=== PATIENT | male | born 1980 | race African-American/Black ===

== ENCOUNTER 2017-03-18 12:40 | Inpatient (IN) | payer MEDICARE ==
--- NOTE | 2017-03-18 13:35 | HP ---
CIWA Score - CIWA Score Nausea/Vomitin-Mild Nausea/No Vomiting Muscle Tremors: 3 Anxiety: 4-Mod. Anxious/Guarded Agitation: 0-Normal Activity Paroxysmal Sweats: No Perspiration Orientation: 1-Uncertain about Date Tacttile Disturbances: 1-Very Mild Itch/Numbness Auditory Disturbances: 1-Very Mild Visual Disturbances: 2-Mild Sensitivity Headache: 1-Very Mild CIWA-Ar Total Score: 14 Admission ROS BHS - HPI Chief Complaint: I'm here to stop drinking Allergies/Adverse Reactions: Allergies Allergy/AdvReac Type Severity Reaction Status Date / Time No Known Allergies Allergy Verified 12/24/15 23:29 History of Present Illness: 36 yo gentleman here for detox from alcohol. 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 Oxycodone in urine tox although he is prescribed hydrocodone - he states he traded all 120 of his hydrocodone for twenty pills of oxycodone 30mg - he states he is 'not dependent' on the oxy and does not take it every day. No seizures, denies black outs. Noted elevated CONCHIS at .235 , hypotensive - denies feeling dizzy. Exam Limitations: Intoxication - Ebola screening Have you traveled outside of the country in the last 21 days: No Have you had contact with anyone from an Ebola affected area: No Have you been sick,other than usual withdrawal symptoms: No - Review of Systems Constitutional: Loss of Appetite, Changes in sleep, Weakness EENT: reports: No Symptoms Reported Respiratory: reports: No Symptoms reported Cardiac: reports: No Symptoms Reported GI: reports: Nausea : reports: Frequency Musculoskeletal: reports: Back Pain Integumentary: reports: No Symptoms Reported Neuro: reports: Headache Endocrine: reports: No Symptoms Reported Hematology: reports: No Symptoms Reported Psychiatric: reports: Judgement Intact, Mood/Affect Appropiate Other Systems: Reviewed and Negative Patient History - Patient Medical History Hx Anemia: No Hx Asthma: No Hx Chronic Obstructive Pulmonary Disease (COPD): No Hx Cancer: No Hx Cardiac Disorders: No Hx Congestive Heart Failure: No Hx Hypertension: No Hx Hypercholesterolemia: No Hx Pacemaker: No HX Cerebrovascular Accident: No Hx Seizures: No Hx Diabetes: No Hx Gastrointestinal Disorders: No Hx Liver Disease: No Hx Genitourinary Disorders: No Hx Sexually Transmitted Disorders: No Hx Renal Disease (ESRD): No Hx Thyroid Disease: No Hx Human Immunodeficiency Virus (HIV): No Hx Hepatitis C: No Hx Depression: Yes (no meds) Hx Suicide Attempt: No Hx Bipolar Disorder: No Hx Schizophrenia: No Other Medical History: back injury - job related - 2016 - Patient Surgical History Past Surgical History: No Hx Neurologic Surgery: No Hx Cataract Extraction: No Hx Cardiac Surgery: No Hx Lung Surgery: No Hx Breast Surgery: No Hx Breast Biopsy: No Hx Abdominal Surgery: No Hx Appendectomy: No Hx Cholecystectomy: No Hx Genitourinary Surgery: No Hx Section: No Hx Orthopedic Surgery: No Hx Hysterectomy: No Anesthesia Reaction: No - PPD History Previous Implant?: Yes Documented Results: Negative w/proof Date: 08/02/15 PPD to be Administered?: Yes - Reproductive History Patient is a Female of Child Bearing Age (11 -55 yrs old): No (male) - Smoking Cessation Smoking history: Current every day smoker Have you smoked in the past 12 months: Yes Aproximately how many cigarettes per day: 10 Cigars Per Day: 0 Hx Chewing Tobacco Use: No Initiated information on smoking cessation: Yes 'Breaking Loose' booklet given: 03/18/17 (give on floor) - Substance & Tx. History Hx Alcohol Use: Yes Hx Substance Use: Yes Substance Use Type: Alcohol, Cocaine Hx Substance Use Treatment: Yes (detox) - Substances Abused Alcohol Route: Oral Frequency: Daily Amount used: three six pack of 12 oz beer Age of first use: 18 Date of Last Use: 03/18/17 Cocaine Route: Inhalation Frequency: 1-3 times last 30 days Amount used: $25 Age of first use: 18 Date of Last Use: 03/17/17 Marijuana/Hashish Route: Smoking Frequency: 1-2 times per week Amount used: 1 joint Age of first use: 22 Date of Last Use: 03/16/17 oxycodone Route: Oral Frequency: 1-2 times per week Amount used: 30mg Age of first use: 35 Date of Last Use: 03/18/17 Family Disease History - Family Disease History Family Disease History: Diabetes: Sister (one - living ), Other: Father (no contact), Mother (living, HTN, etoh), Brother (one - healthy), Sister Admission Physical Exam S - Physical General Appearance: Yes: Nourished, Appropriately Dressed, Mild Distress, Alcohol on Breath, Irritable, Anxious HEENTM: Yes: Hearing grossly Normal, Normocephalic, Normal Voice, Pharynx Normal Respiratory: Yes: Normal Breath Sounds, No Respiratory Distress Neck: Yes: No masses,lesions,Nodules, Supple Breast: Yes: Breast Exam Deferred Cardiology: Yes: Regular Rhythm, Regular Rate Abdominal: Yes: Flat Genitourinary: Yes: Frequency Back: Yes: Normal Inspection Musculoskeletal: Yes: full range of Motion, Gait Steady, Back pain Extremities: Yes: Normal Inspection, Non-Tender Neurological: Yes: Alert, Normal Mood/Affect, Normal Response Integumentary: Yes: Normal Color, Warm Lymphatic: Yes: Within Normal Limits - Diagnostic (1) Alcohol dependence with uncomplicated withdrawal Current Visit: Yes Status: Acute (2) Cocaine dependence Current Visit: Yes Status: Acute Qualifiers: Substance use status: uncomplicated Qualified Code(s): F14.20 - Cocaine dependence, uncomplicated (3) Back pain at L4-L5 level Current Visit: Yes Status: Acute (4) Nicotine dependence Current Visit: Yes Status: Acute Qualifiers: Nicotine product type: cigarettes Substance use status: uncomplicated Qualified Code(s): F17.210 - Nicotine dependence, cigarettes, uncomplicated Cleared for Admission [facility] - Detox or Rehab [facility] Level of Care: Medically Managed Detox Regimen/Protocol: Librium [facility] Breath Alcohol Content Breath Alcohol Content: 0.235
[2017-03-18 13:43] VITALS: BMI 23.8
[2017-03-18] MEDS ORDERED: P-EPHED 60MG/TRIPROLIDI 2.5MG TABLET PO PRN (13:56)
[2017-03-18] MEDS ORDERED: MAG HYDROX/AL HYDROX/SIMETH 30 ML UNIT-DOSE CUP PO PRN (13:56)
[2017-03-18] MEDS ORDERED: hydrOXYzine PAMOATE 25 MG CAPSULE (FP) PO PRN (13:56)
[2017-03-18] MEDS ORDERED: MAGNESIUM CITRATE 300 ML BOTTLE PO PRN (13:56)
[2017-03-18] MEDS ORDERED: MAGNESIUM HYDROX 2400MG/30ML ORAL SUSPENSION 30 ML CUP PO PRN (13:56)
[2017-03-18] MEDS ORDERED: ACETAMINOPHEN 325 MG TABLET (FP) PO PRN (13:56)
[2017-03-18] MEDS ORDERED: IBUPROFEN 400 MG TABLET (FP) PO PRN (13:56)
[2017-03-18] MEDS ORDERED: MENTHOL/PHENOL 1 EACH UD MM PRN (13:56)
[2017-03-18] MEDS ORDERED: guaiFENesin/D-METHORPHAN HB 10 ML UNIT-DOSE CUPS PO PRN (13:56)
[2017-03-18] MEDS ORDERED: chlordiazePOXIDE HCL 25 MG CAPSULE PO PRN (13:56)
[2017-03-18] MEDS ORDERED: LOPERAMIDE HCL 2 MG CAPSULE PO PRN (13:56)
[2017-03-18] MEDS ORDERED: chlordiazePOXIDE HCL 25 MG CAPSULE PO ONE (15:00)
[2017-03-18 17:50] LABS: URINE APPEARANCE CLEAR; URINE BILIRUBIN NEGATIVE (NEGATIVE); URINE BLOOD NEGATIVE (NEGATIVE); URINE COLOR LTYELLOW; URINE GLUCOSE (UA) NEGATIVE (NEGATIVE); URINE KETONE NEGATIVE (NEGATIVE); URINE LEUK ESTERASE NEGATIVE (NEGATIVE); URINE NITRITE NEGATIVE (NEGATIVE); URINE PROTEIN NEGATIVE (NEGATIVE); URINE UROBILINOGEN NEGATIVE mg/dL (0.2-1.0)
[2017-03-18] MEDS: NICOTINE 21 MG/24 HOURS TOPICAL PATCH TD SCH (17:52)
[2017-03-18] MEDS: chlordiazePOXIDE HCL 25 MG CAPSULE PO SCH ×2 (17:54→22:16)
[2017-03-18] MEDS ORDERED: THIAMINE HCL 100 MG TABLET (FP) PO SCH (22:00)
[2017-03-19] MEDS: chlordiazePOXIDE HCL 25 MG CAPSULE PO SCH ×2 (05:26→10:13)
--- NOTE | 2017-03-19 08:49 | CONSULT ---
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 Smokes 10 cigarettes daily Psychiatric History: Denies history of previous psychiatric treatment Physical/Sexual Abuse/Trauma History: Denies history of verbal, physical or sexual abuse. Additional Comment: Reports history of multiple arrests including 10-15 felony convictions. Denies parole/probation currently Mental Status Exam - Mental Status Exam Alert and Oriented to: Time, Place, Person Cognitive Function: Fair Patient Appearance: Well Groomed Mood: Hopeful, Euthymic Affect: Appropriate Patient Behavior: Cooperative Speech Pattern: Clear Voice Loudness: Normal Thought Process: Intact Thought Disorder: Not Present Hallucinations: Denies Suicidal Ideation: Denies Homicidal Ideation: Denies Insight/Judgement: Fair, Poor Sleep: Poorly Appetite: Good Muscle strength/Tone: Normal Gait/Station: Normal Psychiatric Findings - Problem List ([place] 1, 2,3) (1) Substance-induced sleep disorder Current Visit: Yes Status: Acute (2) Alcohol dependence with uncomplicated withdrawal Current Visit: Yes Status: Acute (3) Opioid dependence Current Visit: Yes Status: Acute (4) Cocaine dependence Current Visit: Yes Status: Acute Qualifiers: Substance use status: uncomplicated Qualified Code(s): F14.20 - Cocaine dependence, uncomplicated (5) Cannabis dependence Current Visit: Yes Status: Acute (6) Nicotine dependence Current Visit: Yes Status: Chronic Qualifiers: Nicotine product type: cigarettes Substance use status: uncomplicated Qualified Code(s): F17.210 - Nicotine dependence, cigarettes, uncomplicated (7) Back pain at L4-L5 level Current Visit: Yes Status: Chronic - Initial Treatment Plan Initial Treatment Plan: 1) Start Ambien 10 mf g po HS prn for insomnia. Benefits vs Risks of medication discussed with patient and he agreed to try it. 2) Continue inpatient detoxification
[2017-03-19] MEDS ORDERED: PRENATAL VITAMINS W/ FOLIC ACID TABLET (FP) PO SCH (10:00)
[2017-03-19] MEDS: NICOTINE 21 MG/24 HOURS TOPICAL PATCH TD SCH (10:16)
[2017-03-19 10:28] LABS: ALBUMIN 3.4 g/dl (3.4-5.0); ALK PHOS 111 U/L (45-117); ANION GAP 10 (8-16); BILIRUBIN,TOTAL 0.2 mg/dL (0.2-1.0); BLOOD UREA NITROGEN 13 mg/dL (7-18); CALCIUM 8.9 mg/dL (8.5-10.1); CHLORIDE 104 mmol/L (98-107); CO2 29 mmol/L (21-32); CREATININE 1.1 mg/dL (0.7-1.3); GLUCOSE,RANDOM 73 mg/dL (74-106); POTASSIUM 3.8 mmol/L (3.5-5.1); SGOT/AST 31 U/L (15-37); SGPT/ALT 30 U/L (12-78); SODIUM 143 mmol/L (136-145); TOT PROT 6.5 g/dl (6.4-8.2)
--- NOTE | 2017-03-19 10:33 | EKG ---
Test Reason : Blood Pressure : / mmHG Vent. Rate : 079 BPM Atrial Rate : 079 BPM P-R Int : 166 ms QRS Dur : 092 ms QT Int : 388 ms P-R-T Axes : 066 054 053 degrees QTc Int : 444 ms NORMAL SINUS RHYTHM NORMAL ECG NO PREVIOUS ECGS AVAILABLE BASELINE ARTIFACT Confirmed by BENJAMIN LUCERO, RAH ([id number]) on 03/19/2017 10:33:03 AM Referred By: Ceferino Ayala Confirmed By:RAH ALEXANDER MD
[2017-03-19] MEDS ORDERED: ZOLPIDEM TARTRATE 5 MG TABLET PO PRN (10:51)
[2017-03-19 11:15] LABS: HEMATOCRIT 40.1 % (35.4-49); HEMOGLOBIN 12.9 GM/dL (11.7-16.9); MCH 29.4 pg (25.7-33.7); MCHC 32.1 g/dl (32.0-35.9); MEAN CELL VOLUME 91.4 fl (80-96); MEAN PLT VOLUME 9.1 fl (7.5-11.1); PLATELET COUNT 217 K/MM3 (134-434); RBC 4.39 M/mm3 (4.00-5.60); RDW 14.5 % (11.9-15.9)
[2017-03-19 13:37] VITALS: BP 125/86; PULSE 77; TEMP 96.9
--- NOTE | 2017-03-19 16:33 | PN ---
[facility] CIWA - CIWA Score Nausea/Vomitin-Mild Nausea/No Vomiting Muscle Tremors: 4-Moderate,w/Arms Extend Anxiety: 4-Mod. Anxious/Guarded Agitation: 4-Moderately Restless Paroxysmal Sweats: 3 Orientation: 0-Oriented Tacttile Disturbances: 1-Very Mild Itch/Numbness Auditory Disturbances: 0-None Visual Disturbances: 0-None Headache: 0-None Present CIWA-Ar Total Score: 17 BHS Progress Note (SOAP) Subjective: Nausea, sweating, interrupted sleep, anxious Objective: 03/19/17 16:32 Last Vital Signs Temp Pulse Resp BP Pulse Ox 96.9 F L 77 18 125/86 03/19/17 13:37 03/19/17 13:37 03/19/17 13:37 03/19/17 13:37 Laboratory Tests 03/18/17 03/19/17 03/19/17 15:52 07:45 07:45 WBC 5.0 RBC 4.39 Hgb 12.9 Hct 40.1 MCV 91.4 MCH 29.4 MCHC 32.1 RDW 14.5 Plt Count 217 D MPV 9.1 Sodium 143 Potassium 3.8 Chloride 104 Carbon Dioxide 29 Anion Gap 10 BUN 13 Creatinine 1.1 Creat Clearance w eGFR > 60 Random Glucose 73 L Calcium 8.9 Total Bilirubin 0.2 D AST 31 D ALT 30 D Alkaline Phosphatase 111 D Total Protein 6.5 Albumin 3.4 Urine Color Ltyellow Urine Appearance Clear Urine pH 5.0 Ur Specific [place] 1.005 Urine Protein Negative Urine Glucose (UA) Negative Urine Ketones Negative Urine Blood Negative Urine Nitrite Negative Urine Bilirubin Negative Urine Urobilinogen Negative Ur Leukocyte Esterase Negative RPR Titer HIV 1&2 Antibody Screen HIV P24 Antigen 03/19/17 03/19/17 07:45 07:45 WBC RBC Hgb Hct MCV MCH MCHC RDW Plt Count MPV Sodium Potassium Chloride Carbon Dioxide Anion Gap BUN Creatinine Creat Clearance w eGFR Random Glucose Calcium Total Bilirubin AST ALT Alkaline Phosphatase Total Protein Albumin Urine Color Urine Appearance Urine pH Ur Specific [place] Urine Protein Urine Glucose (UA) Urine Ketones Urine Blood Urine Nitrite Urine Bilirubin Urine Urobilinogen Ur Leukocyte Esterase RPR Titer Nonreactive HIV 1&2 Antibody Screen Negative HIV P24 Antigen Negative Labs noted Assessment: 03/19/17 16:32 Withdrawal symptoms Plan: Continue detox
[2017-03-19] MEDS ORDERED: chlordiazePOXIDE HCL 25 MG CAPSULE PO SCH (17:00)
--- NOTE | 2017-03-19 17:12 | DS ---
[facility] Detox Discharge Summary Admission Date: 03/18/17 Discharge Date: 03/19/17 - History Present History: Alcohol Dependence, Cannabis Dependence, Cocaine Dependence Pertinent Past History: Back pain - Physical Exam Results Vital Signs: Vital Signs Temperature 96.9 F L 03/19/17 13:37 Pulse Rate 77 03/19/17 13:37 Respiratory Rate 18 03/19/17 13:37 Blood Pressure 125/86 03/19/17 13:37 O2 Sat by Pulse Oximetry (%) Pertinent Admission Physical Exam Findings: Withdrawal sx. Laboratory Tests 03/18/17 03/19/17 03/19/17 15:52 07:45 07:45 WBC 5.0 RBC 4.39 Hgb 12.9 Hct 40.1 MCV 91.4 MCH 29.4 MCHC 32.1 RDW 14.5 Plt Count 217 D MPV 9.1 Sodium 143 Potassium 3.8 Chloride 104 Carbon Dioxide 29 Anion Gap 10 BUN 13 Creatinine 1.1 Creat Clearance w eGFR > 60 Random Glucose 73 L Calcium 8.9 Total Bilirubin 0.2 D AST 31 D ALT 30 D Alkaline Phosphatase 111 D Total Protein 6.5 Albumin 3.4 Urine Color Ltyellow Urine Appearance Clear Urine pH 5.0 Ur Specific [place] 1.005 Urine Protein Negative Urine Glucose (UA) Negative Urine Ketones Negative Urine Blood Negative Urine Nitrite Negative Urine Bilirubin Negative Urine Urobilinogen Negative Ur Leukocyte Esterase Negative RPR Titer HIV 1&2 Antibody Screen HIV P24 Antigen 03/19/17 03/19/17 07:45 07:45 WBC RBC Hgb Hct MCV MCH MCHC RDW Plt Count MPV Sodium Potassium Chloride Carbon Dioxide Anion Gap BUN Creatinine Creat Clearance w eGFR Random Glucose Calcium Total Bilirubin AST ALT Alkaline Phosphatase Total Protein Albumin Urine Color Urine Appearance Urine pH Ur Specific [place] Urine Protein Urine Glucose (UA) Urine Ketones Urine Blood Urine Nitrite Urine Bilirubin Urine Urobilinogen Ur Leukocyte Esterase RPR Titer Nonreactive HIV 1&2 Antibody Screen Negative HIV P24 Antigen Negative labs noted - Treatment Patient has Accepted a Rehab Referral to: Signed out [facility] AA meetings - Medication Discharge Medications: Ambulatory Orders Hydrocodone/Acetaminophen [[facility] 10-325 Tablet] 1 each PO QID PRN 03/18/17 - Diagnosis (1) Alcohol dependence with uncomplicated withdrawal Current Visit: Yes Status: Acute (2) Cocaine dependence Current Visit: Yes Status: Chronic Qualifiers: Substance use status: uncomplicated Qualified Code(s): F14.20 - Cocaine dependence, uncomplicated (3) Substance-induced sleep disorder Current Visit: Yes Status: Acute - AMA Did Patient Leave Against Medical Advice: Yes
[2017-03-20] MEDS ORDERED: chlordiazePOXIDE 5 MG CAPSULE PO SCH (17:00)
[2017-03-21] MEDS ORDERED: chlordiazePOXIDE HCL 10 MG CAPSULE PO SCH (17:00)
== END 2017-03-19 17:02 | disposition left against medical advice (07) | DRG 770 ==
LOC: YASAS 12:40 → Y3N 15:19
PROVIDERS: ADMIT Internal Medicine; ATTEND Internal Medicine
PROC: HZ2ZZZZ Detoxification Services for Substance Abuse Treatment (ICD-10-PCS; principal; 2017-03-18)
DX: F10.230 Alcohol dependence with withdrawal, uncomplicated (principal); F14.20 Cocaine dependence, uncomplicated; F12.20 Cannabis dependence, uncomplicated; F17.210 Nicotine dependence, cigarettes, uncomplicated; F19.282 Other psychoactive substance dependence with psychoactive substance-induced sleep disorder; F32.9 Major depressive disorder, single episode, unspecified; G47.00 Insomnia, unspecified; M54.5 Low back pain; G89.29 Other chronic pain
CPT/HCPCS: 36415; 80053; 81003; 85027; 86593; 87389; 93005; 93010

== ENCOUNTER 2017-05-23 12:48 | Inpatient (IN) | payer OTHER ==
[2017-05-23 14:43] VITALS: BMI 23.3
--- NOTE | 2017-05-23 18:28 | HP ---
CIWA Score - CIWA Score Nausea/Vomitin-Mild Nausea/No Vomiting Muscle Tremors: 2 Anxiety: 2 Agitation: 1-Slight > Activity Paroxysmal Sweats: 3 Orientation: 0-Oriented Tacttile Disturbances: 2-Mild Itch/Numbness/Burn (hands and feet) Auditory Disturbances: 0-None Visual Disturbances: 1-Very Mild Sensitivity Headache: 0-None Present CIWA-Ar Total Score: 12 Admission ROS S - HPI Chief Complaint: I am here for detox Allergies/Adverse Reactions: Allergies Allergy/AdvReac Type Severity Reaction Status Date / Time No Known Allergies Allergy Verified 12/24/15 23:29 History of Present Illness: 36 yo male with hx of marijuana, cocaine, nicotine and alcohol dependence is here seeking detox. Patient reports has attempted to attend a detox program but has not completed. Reports past medical hx of chronic back pain related to his job and attends pain management. Denies hx of seizure black out or over dose. Denies suicidal / homicidal ideation or suicide attempts. Reports no significant period of sobriety. - Ebola screening Have you traveled outside of the country in the last 21 days: No Have you had contact with anyone from an Ebola affected area: No Have you been sick,other than usual withdrawal symptoms: No Do you have a fever: No - Review of Systems Constitutional: Chills EENT: reports: No Symptoms Reported Respiratory: reports: No Symptoms reported Cardiac: reports: No Symptoms Reported GI: reports: Poor Appetite, Poor Fluid Intake : reports: No Symptoms Reported Musculoskeletal: reports: Back Pain Integumentary: reports: No Symptoms Reported Neuro: reports: No Symptoms reported Endocrine: reports: No Symptoms Reported Hematology: reports: No Symptoms Reported Psychiatric: reports: Orientated x3 Other Systems: Reviewed and Negative Patient History - Patient Medical History Hx Anemia: No Hx Asthma: No Hx Chronic Obstructive Pulmonary Disease (COPD): No Hx Cancer: No Hx Cardiac Disorders: No Hx Congestive Heart Failure: No Hx Hypertension: No Hx Hypercholesterolemia: No Hx Pacemaker: No HX Cerebrovascular Accident: No Hx Seizures: No Hx Diabetes: No Hx Gastrointestinal Disorders: No Hx Liver Disease: No Hx Genitourinary Disorders: No Hx Sexually Transmitted Disorders: No Hx Renal Disease (ESRD): No Hx Thyroid Disease: No Hx Human Immunodeficiency Virus (HIV): No Hx Hepatitis C: No Hx Depression: No (no meds) Hx Suicide Attempt: No Hx Bipolar Disorder: No Hx Schizophrenia: No - Patient Surgical History Past Surgical History: No Hx Neurologic Surgery: No Hx Cataract Extraction: No Hx Cardiac Surgery: No Hx Lung Surgery: No Hx Breast Surgery: No Hx Breast Biopsy: No Hx Abdominal Surgery: No Hx Appendectomy: No Hx Cholecystectomy: No Hx Genitourinary Surgery: No Hx Section: No Hx Orthopedic Surgery: No Hx Hysterectomy: No Anesthesia Reaction: No - PPD History Previous Implant?: Yes Documented Results: Negative w/proof Date: 08/02/15 PPD to be Administered?: Yes - Reproductive History Patient is a Female of Child Bearing Age (11 -55 yrs old): No - Smoking Cessation Smoking history: Current every day smoker Have you smoked in the past 12 months: Yes Aproximately how many cigarettes per day: 10 Cigars Per Day: 0 Hx Chewing Tobacco Use: No Initiated information on smoking cessation: Yes 'Breaking Loose' booklet given: 05/23/17 - Substance & Tx. History Hx Alcohol Use: Yes Hx Substance Use: Yes Substance Use Type: Alcohol, Cocaine, Marijuana - Substances Abused Alcohol Route: Oral Frequency: Daily Amount used: LIQUOR- 3 PINTS, BEER- 3 SIX PACK Age of first use: 17 Date of Last Use: 05/23/17 Cocaine Route: Inhalation Frequency: Daily Amount used: 3 BAGS Age of first use: 19 Date of Last Use: 05/23/17 Family Disease History - Family Disease History Family Disease History: Diabetes: Sister (one - living ), Other: Father (no contact), Mother (living, HTN, etoh), Brother (one - healthy), Sister Admission Physical Exam S - Vital Signs Vital Signs: Vital Signs - 24 hr 05/23/17 14:31 Temperature 97.5 F L Pulse Rate 96 H Respiratory 20 Rate Blood Pressure 153/102 - Physical General Appearance: Yes: Appropriately Dressed, Alcohol on Breath, Irritable, Sweating, Anxious HEENTM: Yes: EOMI, Hearing grossly Normal, Normal ENT Inspection, Normocephalic , Normal Voice, ENID, Pharynx Normal, Tm's normal Respiratory: Yes: Chest Non-Tender, Lungs Clear, Normal Breath Sounds, No Respiratory Distress, No Accessory Muscle Use Neck: Yes: No masses,lesions,Nodules, Trachea in good position Breast: Yes: Breast Exam Deferred Cardiology: Yes: Regular Rhythm, Regular Rate Abdominal: Yes: Normal Bowel Sounds, Non Tender, Flat, Soft Genitourinary: Yes: Within Normal Limits Back: Yes: Normal Inspection Musculoskeletal: Yes: full range of Motion, Gait Steady, Pelvis Stable Extremities: Yes: Normal Capillary Refill, Normal Inspection, Normal Range of Motion, Non-Tender Neurological: Yes: knife glazer II-XII NML intact, Fully Oriented, Alert, Motor Strength 5/5, Depressed Affect Integumentary: Yes: Normal Color, Dry, Warm Lymphatic: Yes: Within Normal Limits - Addiitonal Findings: WOUND CARE SPECIALIST Reference #: [id number] last refill for hydrocodone 10-325mg filled 2017 quant #90 prescribe by Cordell He Iii, MD, as per jose this is his chronic back pain related to an back injury on the job. - Diagnostic (1) Alcohol dependence with uncomplicated withdrawal Current Visit: Yes Status: Acute (2) Back pain at L4-L5 level Current Visit: Yes Status: Chronic (3) Cannabis dependence Current Visit: Yes Status: Chronic (4) Cocaine dependence Current Visit: Yes Status: Chronic Qualifiers: Substance use status: uncomplicated Qualified Code(s): F14.20 - Cocaine dependence, uncomplicated (5) Nicotine dependence Current Visit: Yes Status: Chronic Qualifiers: Nicotine product type: cigarettes Substance use status: uncomplicated Qualified Code(s): F17.210 - Nicotine dependence, cigarettes, uncomplicated (6) Depressed affect Current Visit: Yes Status: Acute Cleared for Admission [facility] - Detox or Rehab [facility] Level of Care: Medically Managed Detox Regimen/Protocol: Librium [facility] Breath Alcohol Content Breath Alcohol Content: 0.305 Urine Drug Screen - Results Drug Screen Negative: No Urine Drug Screen Results: THC-Marijuana, BARRETT-Cocaine
[2017-05-23] MEDS ORDERED: MENTHOL/PHENOL 1 EACH UD MM PRN (18:31)
[2017-05-23] MEDS ORDERED: IBUPROFEN 400 MG TABLET (FP) PO PRN (18:31)
[2017-05-23] MEDS ORDERED: MAGNESIUM CITRATE 300 ML BOTTLE PO PRN (18:31)
[2017-05-23] MEDS ORDERED: chlordiazePOXIDE HCL 25 MG CAPSULE PO PRN (18:31)
[2017-05-23] MEDS ORDERED: MAG HYDROX/AL HYDROX/SIMETH 30 ML UNIT-DOSE CUP PO PRN (18:31)
[2017-05-23] MEDS ORDERED: MAGNESIUM HYDROX 2400MG/30ML ORAL SUSPENSION 30 ML CUP PO PRN (18:31)
[2017-05-23] MEDS ORDERED: P-EPHED 60MG/TRIPROLIDI 2.5MG TABLET PO PRN (18:31)
[2017-05-23] MEDS ORDERED: ACETAMINOPHEN 325 MG TABLET (FP) PO PRN (18:31)
[2017-05-23] MEDS ORDERED: guaiFENesin/D-METHORPHAN HB 10 ML UNIT-DOSE CUPS PO PRN (18:31)
[2017-05-23] MEDS ORDERED: NICOTINE POLACRILEX 2 MG GUM BC PRN (18:31)
[2017-05-23] MEDS ORDERED: LOPERAMIDE HCL 2 MG CAPSULE PO PRN (18:31)
[2017-05-23] MEDS ORDERED: hydrOXYzine PAMOATE 50 MG CAPSULE (FP) PO PRN (18:31)
[2017-05-23] MEDS ORDERED: chlordiazePOXIDE HCL 25 MG CAPSULE PO ONE (19:00)
[2017-05-23] MEDS ORDERED: CYCLOBENZAPRINE HCL 10 MG TABLET (FP) PO PRN (19:24)
[2017-05-23] MEDS: THIAMINE HCL 100 MG TABLET (FP) PO SCH (22:13)
[2017-05-23] MEDS: chlordiazePOXIDE HCL 25 MG CAPSULE PO SCH (22:14)
[2017-05-23 22:19] LABS: URINE APPEARANCE CLEAR; URINE BILIRUBIN NEGATIVE (NEGATIVE); URINE BLOOD NEGATIVE (NEGATIVE); URINE COLOR YELLOW; URINE GLUCOSE (UA) NEGATIVE (NEGATIVE); URINE KETONE NEGATIVE (NEGATIVE); URINE LEUK ESTERASE NEGATIVE (NEGATIVE); URINE NITRITE NEGATIVE (NEGATIVE); URINE PROTEIN NEGATIVE (NEGATIVE)
[2017-05-23] MEDS ORDERED: cloNIDine HCL 0.1 MG TABLET PO PRN ×2 (23:45→23:48)
[2017-05-24] MEDS: chlordiazePOXIDE HCL 25 MG CAPSULE PO SCH ×4 (05:18→22:36)
--- NOTE | 2017-05-24 07:37 | CONSULT ---
[facility] Psychiatric Consult - Data Substance Abuse History: - Smoking Cessation. Smoking history: Current every day smoker. Have you smoked in the past 12 months: Yes. Aproximately how many cigarettes per day: 10. Cigars Per Day: 0. Hx Chewing Tobacco Use: No. Initiated information on smoking cessation: Yes. 'Breaking Loose' booklet given : 05/23/17. - Substance & Tx. History. Hx Alcohol Use: Yes. Hx Substance Use : Yes. Substance Use Type: Alcohol, Cocaine, Marijuana. - Substances Abused. Alcohol. Route: Oral. Frequency: Daily. Amount used: LIQUOR- 3 PINTS, BEER - 3 SIX PACK. Age of first use: 17. Date of Last Use: 05/23/17. Cocaine. Route: Inhalation. Frequency: Daily. Amount used: 3 BAGS. Age of first use: 19. Date of Last Use: 05/23/17
--- NOTE | 2017-05-24 08:29 | CONSULT ---
[facility] Psychiatric Consult - Data Date of interview: 05/24/17 Admission source: [facility] Identifying data: Pt. 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 This is one of multiple admissions for patient. Pt admitted to for alcohol and cocaine dependence. Substance Abuse History: Following information confirmed with Mr. Kim: - Smoking Cessation. Smoking history: Current every day smoker. Have you smoked in the past 12 months: Yes. Aproximately how many cigarettes per day: 10. Cigars Per Day: 0. Hx Chewing Tobacco Use: No. Initiated information on smoking cessation: Yes. 'Breaking Loose' booklet given: 05/23/17. - Substance & Tx. History. Hx Alcohol Use: Yes. Hx Substance Use: Yes. Substance Use Type : Alcohol, Cocaine, Marijuana. - Substances Abused. Alcohol. Route: Oral. Frequency: Daily. Amount used: LIQUOR- 3 PINTS, BEER- 3 SIX PACK. Age of first use: 17. Date of Last Use: 05/23/17. Cocaine. Route: Inhalation. Frequency: Daily. Amount used: 3 BAGS. Age of first use: 19. Date of Last Use : 05/23/17 Medical History: Denies. Psychiatric History: Pt. denies h/o psychiatric hospitalizations, suicide attempt, and outpatient care. Physical/Sexual Abuse/Trauma History: Denies. Mental Status Exam - Mental Status Exam Alert and Oriented to: Time, Place, Person Cognitive Function: Good Patient Appearance: Well Groomed Mood: Euthymic Affect: Mood Congruent Patient Behavior: Cooperative Speech Pattern: Appropriate Voice Loudness: Normal Thought Process: Goal Oriented Thought Disorder: Not Present Hallucinations: Denies Suicidal Ideation: Denies Homicidal Ideation: Denies Insight/Judgement: Poor Sleep: Poorly Appetite: Fair Muscle strength/Tone: Normal Gait/Station: Normal Psychiatric Findings - Problem List ([place] 1, 2,3) (1) Alcohol dependence with uncomplicated withdrawal Current Visit: Yes Status: Acute (2) Cannabis dependence Current Visit: Yes Status: Chronic (3) Cocaine dependence Current Visit: Yes Status: Chronic Qualifiers: Substance use status: uncomplicated Qualified Code(s): F14.20 - Cocaine dependence, uncomplicated (4) Nicotine dependence Current Visit: Yes Status: Chronic Qualifiers: Nicotine product type: cigarettes Substance use status: uncomplicated Qualified Code(s): F17.210 - Nicotine dependence, cigarettes, uncomplicated (5) Insomnia Current Visit: Yes Status: Acute - Initial Treatment Plan Initial Treatment Plan: Psychoeducation provided. Detoxification in progress. Ambien 10mg qhs prn ordered. Pt. reports favorable effect from previously taking ambien. Benefits and side (sleep walking) effects discussed. Verbal consent given. Will continue to monitor.
--- NOTE | 2017-05-24 09:42 | PN ---
S CIWA - CIWA Score Nausea/Vomitin-No Nausea/No Vomiting Muscle Tremors: 4-Moderate,w/Arms Extend Anxiety: 3 Agitation: 3 Paroxysmal Sweats: 1-Minimal Palms Moist Orientation: 0-Oriented Tacttile Disturbances: 0-None Auditory Disturbances: 0-None Visual Disturbances: 0-None Headache: 0-None Present CIWA-Ar Total Score: 11 BHS Progress Note (SOAP) Subjective: tremor sweat anxiety mild agitated Objective: 05/24/17 09:41 Vital Signs Temperature 97.5 F L 05/24/17 06:29 Pulse Rate 62 05/24/17 06:30 Respiratory Rate 18 05/24/17 06:30 Blood Pressure 115/65 05/24/17 06:29 O2 Sat by Pulse Oximetry (%) Laboratory Last Values Urine Color Yellow 05/23/17 21:00 Urine Appearance Clear 05/23/17 21:00 Urine pH 6.0 (5.0-8.0) 05/23/17 21:00 Ur Specific [place] 1.023 (1.001-1.035) 05/23/17 21:00 Urine Protein Negative (NEGATIVE) 05/23/17 21:00 Urine Glucose (UA) Negative (NEGATIVE) 05/23/17 21:00 Urine Ketones Negative (NEGATIVE) 05/23/17 21:00 Urine Blood Negative (NEGATIVE) 05/23/17 21:00 Urine Nitrite Negative (NEGATIVE) 05/23/17 21:00 Urine Bilirubin Negative (NEGATIVE) 05/23/17 21:00 Urine Urobilinogen 2.0 mg/dL (0.2-1.0) 05/23/17 21:00 Ur Leukocyte Esterase Negative (NEGATIVE) 05/23/17 21:00 lab noted Assessment: 05/24/17 09:41 withdrawal sx Plan: continue detox
[2017-05-24 10:09] LABS: HEMOGLOBIN 13.6 GM/dL (11.7-16.9); MCH 30.6 pg (25.7-33.7); MCHC 33.2 g/dl (32.0-35.9); MEAN CELL VOLUME 92.1 fl (80-96); PLATELET COUNT 175 K/MM3 (134-434); RBC 4.46 M/mm3 (4.00-5.60); RDW 14.1 % (11.9-15.9); WHITE BLOOD COUNT 3.3 K/mm3 (4.0-10.0)
[2017-05-24] MEDS: PRENATAL VITAMINS W/ FOLIC ACID TABLET (FP) PO SCH (10:11)
[2017-05-24] MEDS: NICOTINE 14 MG/24 HOURS TOPICAL PATCH TD SCH (10:12)
[2017-05-24 10:22] LABS: CHLORIDE 102 mmol/L (98-107); SODIUM 139 mmol/L (136-145)
[2017-05-24 10:39] LABS: ALBUMIN 3.5 g/dl (3.4-5.0); ALK PHOS 75 U/L (45-117); ANION GAP 6 (8-16); BILIRUBIN,TOTAL 1.2 mg/dL (0.2-1.0); BLOOD UREA NITROGEN 9 mg/dL (7-18); CALCIUM 8.6 mg/dL (8.5-10.1); CO2 31 mmol/L (21-32); CREATININE 0.9 mg/dL (0.7-1.3); GLUCOSE,RANDOM 74 mg/dL (74-106); SGOT/AST 55 U/L (15-37); SGPT/ALT 34 U/L (12-78); TOT PROT 6.6 g/dl (6.4-8.2)
--- NOTE | 2017-05-24 11:20 | EKG ---
Test Reason : Blood Pressure : / mmHG Vent. Rate : 064 BPM Atrial Rate : 064 BPM P-R Int : 152 ms QRS Dur : 094 ms QT Int : 422 ms P-R-T Axes : 040 057 058 degrees QTc Int : 435 ms NORMAL SINUS RHYTHM MINIMAL VOLTAGE CRITERIA FOR LVH, MAY BE NORMAL VARIANT BORDERLINE ECG WHEN COMPARED WITH ECG OF 18-MAR-2017 18:59, NO SIGNIFICANT CHANGE WAS FOUND Confirmed by TIA LUCERO, DARRIN ([id number]) on 05/24/2017 11:20:33 AM Referred By: Confirmed By:DARRIN WEBER MD
[2017-05-24] MEDS ORDERED: ZOLPIDEM TARTRATE 10 MG TABLET (PARK CARE ONLY) PO PRN (22:00)
[2017-05-24] MEDS: THIAMINE HCL 100 MG TABLET (FP) PO SCH (22:35)
[2017-05-25] MEDS: chlordiazePOXIDE HCL 25 MG CAPSULE PO SCH ×3 (06:08→17:14)
--- NOTE | 2017-05-25 10:30 | PN ---
S Progress Note (SOAP) Subjective: alert oriented x 3 feeling better interact with peer sleep throughout the night tolerates food and fluid well Objective: 05/25/17 10:28 Vital Signs Temperature 97.1 F L 05/25/17 06:25 Pulse Rate 58 L 05/25/17 07:02 Respiratory Rate 19 05/25/17 07:02 Blood Pressure 115/67 05/25/17 07:02 O2 Sat by Pulse Oximetry (%) Laboratory Last Values WBC 3.3 K/mm3 (4.0-10.0) L D 05/24/17 06:00 RBC 4.46 M/mm3 (4.00-5.60) 05/24/17 06:00 Hgb 13.6 GM/dL (11.7-16.9) 05/24/17 06:00 Hct 41.0 % (35.4-49) 05/24/17 06:00 MCV 92.1 fl (80-96) 05/24/17 06:00 MCH 30.6 pg (25.7-33.7) 05/24/17 06:00 MCHC 33.2 g/dl (32.0-35.9) 05/24/17 06:00 RDW 14.1 % (11.9-15.9) 05/24/17 06:00 Plt Count 175 K/MM3 (134-434) 05/24/17 06:00 MPV 9.0 fl (7.5-11.1) 05/24/17 06:00 Sodium 139 mmol/L (136-145) 05/24/17 06:00 Potassium 4.0 mmol/L (3.5-5.1) 05/24/17 06:00 Chloride 102 mmol/L (98-107) 05/24/17 06:00 Carbon Dioxide 31 mmol/L (21-32) 05/24/17 06:00 Anion Gap 6 (8-16) L 05/24/17 06:00 BUN 9 mg/dL (7-18) D 05/24/17 06:00 Creatinine 0.9 mg/dL (0.7-1.3) 05/24/17 06:00 Creat Clearance w eGFR > 60 (>60) 05/24/17 06:00 Random Glucose 74 mg/dL (74-106) 05/24/17 06:00 Calcium 8.6 mg/dL (8.5-10.1) 05/24/17 06:00 Total Bilirubin 1.2 mg/dL (0.2-1.0) H D 05/24/17 06:00 AST 55 U/L (15-37) H D 05/24/17 06:00 ALT 34 U/L (12-78) 05/24/17 06:00 Alkaline Phosphatase 75 U/L (45-117) D 05/24/17 06:00 Total Protein 6.6 g/dl (6.4-8.2) 05/24/17 06:00 Albumin 3.5 g/dl (3.4-5.0) 05/24/17 06:00 Urine Color Yellow 05/23/17 21:00 Urine Appearance Clear 05/23/17 21:00 Urine pH 6.0 (5.0-8.0) 05/23/17 21:00 Ur Specific [place] 1.023 (1.001-1.035) 05/23/17 21:00 Urine Protein Negative (NEGATIVE) 05/23/17 21:00 Urine Glucose (UA) Negative (NEGATIVE) 05/23/17 21:00 Urine Ketones Negative (NEGATIVE) 05/23/17 21:00 Urine Blood Negative (NEGATIVE) 05/23/17 21:00 Urine Nitrite Negative (NEGATIVE) 05/23/17 21:00 Urine Bilirubin Negative (NEGATIVE) 05/23/17 21:00 Urine Urobilinogen 2.0 mg/dL (0.2-1.0) 05/23/17 21:00 Ur Leukocyte Esterase Negative (NEGATIVE) 05/23/17 21:00 RPR Titer Nonreactive (NONREACTIVE) 05/24/17 06:00 lab noted Assessment: 05/25/17 10:28 mild withdrawal sx Plan: medically supervised detox team discussion consensus agree that the patient can be discharged 05/26/17 to aftercare
[2017-05-25] MEDS: PRENATAL VITAMINS W/ FOLIC ACID TABLET (FP) PO SCH (10:42)
[2017-05-25] MEDS: NICOTINE 14 MG/24 HOURS TOPICAL PATCH TD SCH (10:43)
[2017-05-25] MEDS: THIAMINE HCL 100 MG TABLET (FP) PO SCH (22:26)
[2017-05-25] MEDS: chlordiazePOXIDE 5 MG CAPSULE PO SCH (22:26)
[2017-05-26] MEDS: chlordiazePOXIDE 5 MG CAPSULE PO SCH (05:07)
[2017-05-26 06:31] VITALS: PULSE 71
--- NOTE | 2017-05-26 08:35 | DS ---
[facility] Detox Discharge Summary Admission Date: 05/23/17 Discharge Date: 05/26/17 - History Present History: Alcohol Dependence, Cannabis Dependence, Cocaine Dependence - Physical Exam Results Vital Signs: Vital Signs Temperature 96.8 F L 05/26/17 06:30 Pulse Rate 71 05/26/17 06:30 Respiratory Rate 18 05/26/17 06:30 Blood Pressure 134/90 05/26/17 06:30 O2 Sat by Pulse Oximetry (%) - Treatment Hospital Course: Detox Protocol Followed, Detoxed Safely, Responded well, Discharged Condition Good - Diagnosis (1) Alcohol dependence with uncomplicated withdrawal Current Visit: Yes Status: Chronic (2) Cannabis dependence Current Visit: Yes Status: Chronic (3) Cocaine dependence Current Visit: Yes Status: Chronic Qualifiers: Substance use status: uncomplicated Qualified Code(s): F14.20 - Cocaine dependence, uncomplicated (4) Nicotine dependence Current Visit: Yes Status: Chronic Qualifiers: Nicotine product type: cigarettes Substance use status: uncomplicated Qualified Code(s): F17.210 - Nicotine dependence, cigarettes, uncomplicated (5) Alcohol dependence Current Visit: No Status: Chronic Qualifiers: Substance use status: in withdrawal Complication of substance-induced condition: uncomplicated Qualified Code(s): F10.230 - Alcohol dependence with withdrawal, uncomplicated - AMA Did Patient Leave Against Medical Advice: No
[2017-05-26] MEDS: NICOTINE 14 MG/24 HOURS TOPICAL PATCH TD SCH (09:01)
[2017-05-26] MEDS: PRENATAL VITAMINS W/ FOLIC ACID TABLET (FP) PO SCH (09:06)
[2017-05-26 09:41] VITALS: BP 135/85; TEMP 98.2
[2017-05-26] MEDS ORDERED: chlordiazePOXIDE HCL 10 MG CAPSULE PO SCH (23:00)
== END 2017-05-26 09:38 | disposition home or self-care (01) | DRG 774 ==
LOC: YASAS 12:48 → Y6N 18:06
PROVIDERS: ADMIT Internal Medicine; ATTEND Internal Medicine
PROC: HZ2ZZZZ Detoxification Services for Substance Abuse Treatment (ICD-10-PCS; principal; 2017-05-23)
DX: F10.230 Alcohol dependence with withdrawal, uncomplicated (principal); F14.20 Cocaine dependence, uncomplicated; F12.20 Cannabis dependence, uncomplicated; F17.210 Nicotine dependence, cigarettes, uncomplicated; F32.9 Major depressive disorder, single episode, unspecified; G47.00 Insomnia, unspecified; M54.5 Low back pain; G89.29 Other chronic pain
CPT/HCPCS: 36415; 80053; 81003; 85027; 86593; 93005; 93010; J0735

== ENCOUNTER 2019-03-11 19:31 | Inpatient (IN) | payer OTHER ==
[2019-03-11 19:54] VITALS: BMI 25.4
--- NOTE | 2019-03-11 21:28 | HP ---
CIWA Score Nausea/Vomitin-Mild Nausea/No Vomiting Muscle Tremors: None Anxiety: 4-Mod. Anxious/Guarded Agitation: 4-Moderately Restless Paroxysmal Sweats: No Perspiration Orientation: 2-Disoriented Date<2 days Tacttile Disturbances: 0-None Auditory Disturbances: 0-None Visual Disturbances: 0-None Headache: 0-None Present CIWA-Ar Total Score: 11 - Admission Criteria OASAS Guidelines: Admission for Medically Managed Detox: Requires at least one of the followin. CIWA greater than 12 2. Seizures within the past 24 hours 3. Delirium tremens within the past 24 hours 4. Hallucinations within the past 24 hours 5. Acute intervention needed for co occurring medical disorder 6. Acute intervention needed for co occurring psychiatric disorder 7. Severe withdrawal that cannot be handled at a lower level of care (continued vomiting, continued diarrhea, abnormal vital signs) requiring intravenous medication and/or fluids 8. Patient presents the following: Acute intervention needed for co-occurring med or psych disorder (alcohol intoxication with onset of withdrawal sx's- B/P 161/ 104) Admission Criteria Met: Admission criteria met Admitting History and Physical - Smoking History Smoking history: Current every day smoker Have you smoked in the past 12 months: Yes Aproximately how many cigarettes per day: 10 - Alcohol/Substance Use Hx Alcohol Use: Yes Admission ROS [facility] - [facility] Chief Complaint: seeking alcohol detox Allergies/Adverse Reactions: Allergies Allergy/AdvReac Type Severity Reaction Status Date / Time No Known Allergies Allergy Verified 03/11/19 19:48 History of Present Illness: HERE FOR ALCOHOL DETOX. CLIENT IS SELF REFERRED. KNOWN TO PROGRAM LAST HERE 2017. PRESENTS TODAY WITH C/O WITHDRAWAL SX'S. CLIENT REPORTS DAILY ALCOHOL INTAKE . LAST BEING EARLIER TODAY. 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 HE DOES REPORT HX/O BLACK OUTS DENIES HX/O SEIZURES. 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 CLIENT AWARE OF LOS, DENIES CONFLICT WITH WORK SCHEDULE. DENIES LEGALS Exam Limitations: No Limitations - Ebola screening Have you traveled outside of the country in the last 21 days: No (N) Have you had contact with anyone from an Ebola affected area: No Do you have a fever: No - Review of Systems Constitutional: Loss of Appetite EENT: reports: Blurred Vision Respiratory: reports: No Symptoms reported Cardiac: reports: No Symptoms Reported GI: reports: Poor Appetite, Poor Fluid Intake : reports: No Symptoms Reported Musculoskeletal: reports: Back Pain (CHRONIC) Integumentary: reports: No Symptoms Reported Neuro: reports: Headache, Other (BLACK OUTS) Endocrine: reports: No Symptoms Reported Hematology: reports: No Symptoms Reported Psychiatric: reports: No Sypmtoms Reported, Anxious, Depressed (DENIES SI) Other Systems: Reviewed and Negative Patient History - Patient Medical History Hx Anemia: No Hx Asthma: No Hx Chronic Obstructive Pulmonary Disease (COPD): No Hx Cancer: No Hx Cardiac Disorders: No Hx Congestive Heart Failure: No Hx Hypertension: Yes (WITH INTOXICATION) Hx Hypercholesterolemia: No Hx Pacemaker: No HX Cerebrovascular Accident: No Hx Seizures: No Hx Diabetes: No Hx Gastrointestinal Disorders: No Hx Liver Disease: No Hx Genitourinary Disorders: No Hx Sexually Transmitted Disorders: No Hx Renal Disease (ESRD): No Hx Thyroid Disease: No Hx Human Immunodeficiency Virus (HIV): No Hx Hepatitis C: No Hx Depression: No Hx Suicide Attempt: No Hx Bipolar Disorder: No Hx Schizophrenia: No Other Medical History: DENIES - Patient Surgical History Past Surgical History: No Hx Neurologic Surgery: No Hx Cataract Extraction: No Hx Cardiac Surgery: No Hx Lung Surgery: No Hx Breast Surgery: No Hx Breast Biopsy: No Hx Abdominal Surgery: No Hx Appendectomy: No Hx Cholecystectomy: No Hx Genitourinary Surgery: No Hx Section: No Hx Orthopedic Surgery: No Hx Hysterectomy: No Anesthesia Reaction: No - PPD History Previous Implant?: Yes Documented Results: Negative w/proof Implanted On Prior [facility] Admission?: Yes Date: 05/25/17 Results: 0MM PPD to be Administered?: Yes - Smoking Cessation Smoking history: Current every day smoker Have you smoked in the past 12 months: Yes Aproximately how many cigarettes per day: 10 Cigars Per Day: 0 Hx Chewing Tobacco Use: No Initiated information on smoking cessation: Yes 'Breaking Loose' booklet given: 03/11/19 - Substance & Tx. History Hx Alcohol Use: Yes Hx Substance Use: Yes Substance Use Type: Alcohol, Cocaine, Heroin Hx Substance Use Treatment: Yes ([facility]) - Substances abused Alcohol Substance route: Oral Frequency: Daily Amount used: 1 PINT MATT Age of first use: 20 Date of last use: 03/11/19 (2 PINTS) Cocaine Substance route: Inhalation Frequency: 1-2 times per week Amount used: $20 Age of first use: 15 Date of last use: 03/11/19 Admission Physical Exam [facility] - Vital Signs Vital Signs: Vital Signs - 24 hr 03/11/19 19:43 Temperature 98.7 F Pulse Rate 99 H Respiratory 18 Rate Blood Pressure 161/104 H - Physical General Appearance: Yes: Moderate Distress, Alcohol on Breath, Intoxicated, Anxious HEENTM: Yes: EOMI, Normocephalic, Normal Voice, ENID, Pharynx Normal Respiratory: Yes: Chest Non-Tender, Lungs Clear, Normal Breath Sounds, No Respiratory Distress, No Accessory Muscle Use Neck: Yes: No masses,lesions,Nodules, Supple, Trachea in good position Breast: Yes: Breasts Symetrical Cardiology: Yes: Regular Rhythm, Regular Rate, S1, S2, Bradycardia Abdominal: Yes: Normal Bowel Sounds, Non Tender, Soft Genitourinary: Yes: Within Normal Limits Back: Yes: Vertebral Tenderness (L SPINE) Musculoskeletal: Yes: full range of Motion, Gait Steady, Back pain (CHRONIC) Extremities: Yes: Normal Capillary Refill, Normal Range of Motion, Non-Tender Neurological: Yes: Fully Oriented, Alert, Motor Strength 5/5, Depressed Affect ( DENIES SI) Integumentary: Yes: Dry, Warm, Other (LEFT KNEE ABRASION WITH SCAB 2/2 RECENT FALL FROM INTOXICATION 4 DAYS AGO) Lymphatic: Yes: Within Normal Limits - Diagnostic (1) Alcohol dependence with intoxication, unspecified Current Visit: Yes Status: Acute Comment: HTN (2) Depressed affect Current Visit: Yes Status: Acute (3) Cannabis dependence Current Visit: Yes Status: Acute (4) Cocaine dependence Current Visit: Yes Status: Acute Qualifiers: Substance use status: uncomplicated Qualified Code(s): F14.20 - Cocaine dependence, uncomplicated (5) Nicotine dependence Current Visit: Yes Status: Chronic Qualifiers: Nicotine product type: cigarettes Substance use status: uncomplicated Qualified Code(s): F17.210 - Nicotine dependence, cigarettes, uncomplicated (6) Drug-induced mood disorder Current Visit: Yes Status: Suspected (7) Risk for falls Current Visit: Yes Status: Acute Cleared for Admission [facility] - Detox or Rehab [facility] Level of Care: Medically Managed Detox Regimen/Protocol: Librium Claeared for Rehab Admission: No Breathalyzer - Breathalyzer Breathalyzer: 0.299 Urine Drug Screen - Test Device Lot number: [id number] Expiration date: 10/17/20 - Control Is test valid?: Yes - Results Drug screen NEGATIVE: No Urine drug screen results: THC-Marijuana, BARRETT-Cocaine Inpatient Rehab Admission - Rehab Decision to Admit Inpatient rehab admission?: No
[2019-03-11] MEDS ORDERED: NICOTINE POLACRILEX 2 MG GUM BUC PRN (21:34)
[2019-03-11] MEDS ORDERED: ACETAMINOPHEN 325 MG TABLET (FP) PO PRN ×2 (21:34)
[2019-03-11] MEDS ORDERED: MAG HYDROX/AL HYDROX/SIMETH 30 ML UNIT-DOSE CUP PO PRN (21:34)
[2019-03-11] MEDS ORDERED: MAGNESIUM HYDROX 2400MG/30ML ORAL SUSPENSION 30 ML CUP PO PRN (21:34)
[2019-03-11] MEDS ORDERED: BISMUTH SUBSALICYLATE 524 MG/30 ML UD PO PRN (21:34)
[2019-03-11] MEDS ORDERED: IBUPROFEN 400 MG TABLET (FP) PO PRN (21:34)
[2019-03-11] MEDS ORDERED: chlordiazePOXIDE HCL 25 MG CAPSULE PO PRN (21:34)
[2019-03-11] MEDS ORDERED: hydrOXYzine PAMOATE 25 MG CAPSULE (FP) PO PRN (21:34)
[2019-03-11] MEDS ORDERED: guaiFENesin 200 MG/10 ML 10 ML UNIT-DOSE CUPS PO PRN (21:34)
[2019-03-11] MEDS ORDERED: MAGNESIUM CITRATE 300 ML BOTTLE PO PRN (21:34)
[2019-03-11] MEDS ORDERED: METHOCARBAMOL 500 MG TABLET PO PRN (21:34)
[2019-03-11] MEDS ORDERED: ONDANSETRON *ODT* 4 MG TABLET SL PRN (21:34)
[2019-03-11] MEDS ORDERED: P-EPHED 60MG/TRIPROLIDI 2.5MG TABLET PO PRN (21:34)
[2019-03-11] MEDS ORDERED: MENTHOL/PHENOL 1 EACH UD MM PRN (21:34)
[2019-03-11] MEDS ORDERED: DICYCLOMINE HCL 10 MG CAPSULE PO PRN (21:34)
[2019-03-11] MEDS: chlordiazePOXIDE HCL 25 MG CAPSULE PO SCH (22:24)
[2019-03-11] MEDS: MELATONIN 5 MG TABLETS PO PRN (22:24)
[2019-03-11] MEDS: THIAMINE HCL 100 MG TABLET (FP) PO SCH (22:24)
[2019-03-12] MEDS: chlordiazePOXIDE HCL 25 MG CAPSULE PO SCH ×4 (05:04→22:07)
[2019-03-12] MEDS: PRENATAL VITAMINS W/ FOLIC ACID TABLET (FP) PO SCH (10:06)
[2019-03-12] MEDS: NICOTINE 14 MG/24 HOURS TOPICAL PATCH TD SCH (10:07)
--- NOTE | 2019-03-12 10:17 | EKG ---
Test Reason : Blood Pressure : / mmHG Vent. Rate : 084 BPM Atrial Rate : 084 BPM P-R Int : 164 ms QRS Dur : 106 ms QT Int : 388 ms P-R-T Axes : 064 043 031 degrees QTc Int : 458 ms NORMAL SINUS RHYTHM NORMAL ECG WHEN COMPARED WITH ECG OF 23-MAY-2017 21:04, NONSPECIFIC T WAVE ABNORMALITY NOW EVIDENT IN INFERIOR LEADS T WAVE AMPLITUDE HAS DECREASED IN ANTEROLATERAL LEADS Confirmed by Madie LUCERO, Keith ([id number]) on 03/12/2019 10:16:59 AM Referred By: Asim Monroy Confirmed By:Keith Ramachandran MD
[2019-03-12 10:27] LABS: HEMATOCRIT 37.5 % (35.4-49); HEMOGLOBIN 12.4 GM/dL (11.7-16.9); MCH 30.4 pg (25.7-33.7); MEAN CELL VOLUME 92.1 fl (80-96); MEAN PLT VOLUME 9.1 fl (7.5-11.1); PLATELET COUNT 190 K/MM3 (134-434); RBC 4.07 M/mm3 (4.00-5.60); RDW 14.6 % (11.9-15.9); WHITE BLOOD COUNT 3.8 K/mm3 (4.0-10.0)
--- NOTE | 2019-03-12 10:27 | PN ---
S CIWA - CIWA Score Nausea/Vomitin-Mild Nausea/No Vomiting Muscle Tremors: 3 Anxiety: 4-Mod. Anxious/Guarded Agitation: 2 Paroxysmal Sweats: 2 Orientation: 0-Oriented Tacttile Disturbances: 0-None Auditory Disturbances: 0-None Visual Disturbances: 0-None Headache: 1-Very Mild CIWA-Ar Total Score: 13 S Progress Note (SOAP) Subjective: 38 years old male admitted on 03/11/19 for alcohol withdrawal sx management treating with librium detox regimen ate breakfast feeling tired resting on bed encourage to attend groups and meetings Objective: 03/12/19 10:26 Vital Signs Temperature 98.8 F 03/12/19 09:02 Pulse Rate 78 03/12/19 09:02 Respiratory Rate 18 03/12/19 09:02 Blood Pressure 121/78 03/12/19 09:02 O2 Sat by Pulse Oximetry (%) 03/12/19 10:26 lab pending Assessment: 03/12/19 10:26 alcohol withdrawal Plan: librium regimen
--- NOTE | 2019-03-12 11:17 | CONSULT ---
[facility] Psychiatric Consult - Data Date of interview: 03/12/19 Admission source: [facility] Identifying data: Readmission to [address] [place] [address] for this 38 y/o AA male self-referred for detoxification treatment. JADA issues : alcohol, cannabis, nicotine, cocaine. Patient is single without children, domiciled and currently employed. Substance Abuse History: Discussed with the patient. Details in current [facility] report as follows : Smoking history: Current every day smoker. Have you smoked in the past 12 months: Yes. Aproximately how many cigarettes per day: 10. Cigars Per Day: 0. Hx Chewing Tobacco Use: No. Initiated information on smoking cessation: Yes. 'Breaking Loose' booklet given: 03/11/19. - Substance & Tx. History. Hx Alcohol Use: Yes. Hx Substance Use: Yes. Substance Use Type : Alcohol, Cocaine, Heroin. Hx Substance Use Treatment: Yes ([facility]). - Substances abused. Alcohol. Substance route: Oral. Frequency: Daily. Amount used: 1 PINT MATT. Age of first use: 20. Date of last use: (2 PINTS). Cocaine. Substance route: Inhalation. Frequency: 1-2 times per week. Amount used: $20. Age of first use: 15. Date of last use: 03/11/19 Medical History: Patient endorses good general health. Psychiatric History: Patient denies history of psychiatric hospitalizations, OPD care or suicide attempts. Physical/Sexual Abuse/Trauma History: Patient denies. Additional Comment: Urine drug screen results: THC-Marijuana, BARRETT-Cocaine. Noted. Mental Status Exam - Mental Status Exam Alert and Oriented to: Time, Place, Person Cognitive Function: Good Patient Appearance: Well Groomed Mood: Hopeful, Euthymic Affect: Appropriate, Normal Range Patient Behavior: Fatigued, Appropriate, Cooperative Speech Pattern: Clear Voice Loudness: Normal Thought Process: Intact, Goal Oriented Thought Disorder: Not Present Hallucinations: Denies Suicidal Ideation: Denies Homicidal Ideation: Denies Insight/Judgement: Fair Sleep: Well Appetite: Good Gait/Station: Normal Psychiatric Findings - Problem List ([place] 1, 2,3) (1) Alcohol dependence with uncomplicated withdrawal Current Visit: Yes Status: Chronic (2) Cocaine dependence Current Visit: Yes Status: Chronic Qualifiers: Substance use status: uncomplicated Qualified Code(s): F14.20 - Cocaine dependence, uncomplicated (3) Cannabis dependence Current Visit: Yes Status: Chronic (4) Nicotine dependence Current Visit: Yes Status: Chronic Qualifiers: Nicotine product type: cigarettes Substance use status: uncomplicated Qualified Code(s): F17.210 - Nicotine dependence, cigarettes, uncomplicated - Initial Treatment Plan Initial Treatment Plan: Psychoeducation. Sleep hygiene. Detoxification. MAT services : discussed with the patient. AA meetings. Observation.
[2019-03-12 11:45] LABS: ALBUMIN 3.3 g/dl (3.4-5.0); BILIRUBIN,TOTAL 0.6 mg/dL (0.2-1); BLOOD UREA NITROGEN 12.1 mg/dL (7-18); CALCIUM 8.7 mg/dL (8.5-10.1); POTASSIUM 3.7 mmol/L (3.5-5.1); TOT PROT 6.5 g/dl (6.4-8.2)
[2019-03-12] MEDS: THIAMINE HCL 100 MG TABLET (FP) PO SCH (22:06)
[2019-03-12] MEDS: MELATONIN 5 MG TABLETS PO PRN (22:07)
[2019-03-13] MEDS: chlordiazePOXIDE HCL 25 MG CAPSULE PO SCH ×4 (05:44→22:30)
[2019-03-13] MEDS: PRENATAL VITAMINS W/ FOLIC ACID TABLET (FP) PO SCH (10:22)
[2019-03-13] MEDS: NICOTINE 14 MG/24 HOURS TOPICAL PATCH TD SCH (10:22)
--- NOTE | 2019-03-13 11:34 | PN ---
[facility] CIWA - CIWA Score Nausea/Vomitin-Mild Nausea/No Vomiting Muscle Tremors: 3 Anxiety: 2 Agitation: 2 Paroxysmal Sweats: 1-Minimal Palms Moist Orientation: 0-Oriented Tacttile Disturbances: 0-None Auditory Disturbances: 0-None Visual Disturbances: 0-None Headache: 1-Very Mild CIWA-Ar Total Score: 10 S Progress Note (SOAP) Subjective: 38 years old male admitted on 03/11/19 for alcohol withdrawal sx management treating with librium detox regimen ate breakfast resting on bed discuss aftercare with staff encourage to attend meetings and groups Objective: 03/13/19 11:33 Vital Signs Temperature 98.4 F 03/13/19 09:19 Pulse Rate 64 03/13/19 09:19 Respiratory Rate 18 03/13/19 09:19 Blood Pressure 128/77 03/13/19 09:19 O2 Sat by Pulse Oximetry (%) Laboratory Last Values WBC 3.8 K/mm3 (4.0-10.0) L 03/12/19 07:00 RBC 4.07 M/mm3 (4.00-5.60) 03/12/19 07:00 Hgb 12.4 GM/dL (11.7-16.9) 03/12/19 07:00 Hct 37.5 % (35.4-49) 03/12/19 07:00 MCV 92.1 fl (80-96) 03/12/19 07:00 MCH 30.4 pg (25.7-33.7) 03/12/19 07:00 MCHC 33.0 g/dl (32.0-35.9) 03/12/19 07:00 RDW 14.6 % (11.9-15.9) 03/12/19 07:00 Plt Count 190 K/MM3 (134-434) 03/12/19 07:00 MPV 9.1 fl (7.5-11.1) 03/12/19 07:00 Sodium 137 mmol/L (136-145) 03/12/19 07:00 Potassium 3.7 mmol/L (3.5-5.1) 03/12/19 07:00 Chloride 102 mmol/L (98-107) 03/12/19 07:00 Carbon Dioxide 30 mmol/L (21-32) 03/12/19 07:00 Anion Gap 5 MMOL/L (8-16) L 03/12/19 07:00 BUN 12.1 mg/dL (7-18) 03/12/19 07:00 Creatinine 1.0 mg/dL (0.55-1.3) 03/12/19 07:00 Est GFR (CKD-EPI)AfAm 110.94 03/12/19 07:00 Est GFR (CKD-EPI)NonAf 95.72 03/12/19 07:00 Random Glucose 82 mg/dL (74-106) 03/12/19 07:00 Calcium 8.7 mg/dL (8.5-10.1) 03/12/19 07:00 Total Bilirubin 0.6 mg/dL (0.2-1) 03/12/19 07:00 AST 44 U/L (15-37) H 03/12/19 07:00 ALT 31 U/L (13-61) 03/12/19 07:00 Alkaline Phosphatase 74 U/L (45-117) 03/12/19 07:00 Total Protein 6.5 g/dl (6.4-8.2) 03/12/19 07:00 Albumin 3.3 g/dl (3.4-5.0) L 03/12/19 07:00 RPR Titer Nonreactive (NONREACTIVE) 03/12/19 07:00 lab noted Assessment: 03/13/19 11:33 alcohol withdrawal Plan: librium regimen
[2019-03-13] MEDS: THIAMINE HCL 100 MG TABLET (FP) PO SCH (22:30)
[2019-03-13] MEDS: MELATONIN 5 MG TABLETS PO PRN (22:30)
[2019-03-14] MEDS ORDERED: chlordiazePOXIDE HCL 10 MG CAPSULE PO PRN
[2019-03-14] MEDS: chlordiazePOXIDE HCL 10 MG CAPSULE PO SCH ×2 (05:52→10:34)
--- NOTE | 2019-03-14 09:24 | PN ---
S CIWA - CIWA Score Nausea/Vomitin-No Nausea/No Vomiting Muscle Tremors: None Anxiety: 3 Agitation: 0-Normal Activity Paroxysmal Sweats: 3 Orientation: 0-Oriented Tacttile Disturbances: 0-None Auditory Disturbances: 0-None Visual Disturbances: 0-None Headache: 2-Mild CIWA-Ar Total Score: 8 BHS Progress Note (SOAP) Subjective: c/o headache, sweats, and anxiety. Objective: 03/14/19 09:21 Vital Signs 03/14/19 03/14/19 03/14/19 03:30 05:56 09:13 Temperature 97.3 F L 97.3 F L Pulse Rate 67 73 Respiratory 18 18 18 Rate Blood Pressure 111/69 138/96 03/14/19 09:22 Laboratory Last Values WBC 3.8 K/mm3 (4.0-10.0) L 03/12/19 07:00 RBC 4.07 M/mm3 (4.00-5.60) 03/12/19 07:00 Hgb 12.4 GM/dL (11.7-16.9) 03/12/19 07:00 Hct 37.5 % (35.4-49) 03/12/19 07:00 MCV 92.1 fl (80-96) 03/12/19 07:00 MCH 30.4 pg (25.7-33.7) 03/12/19 07:00 MCHC 33.0 g/dl (32.0-35.9) 03/12/19 07:00 RDW 14.6 % (11.9-15.9) 03/12/19 07:00 Plt Count 190 K/MM3 (134-434) 03/12/19 07:00 MPV 9.1 fl (7.5-11.1) 03/12/19 07:00 Sodium 137 mmol/L (136-145) 03/12/19 07:00 Potassium 3.7 mmol/L (3.5-5.1) 03/12/19 07:00 Chloride 102 mmol/L (98-107) 03/12/19 07:00 Carbon Dioxide 30 mmol/L (21-32) 03/12/19 07:00 Anion Gap 5 MMOL/L (8-16) L 03/12/19 07:00 BUN 12.1 mg/dL (7-18) 03/12/19 07:00 Creatinine 1.0 mg/dL (0.55-1.3) 03/12/19 07:00 Est GFR (CKD-EPI)AfAm 110.94 03/12/19 07:00 Est GFR (CKD-EPI)NonAf 95.72 03/12/19 07:00 Random Glucose 82 mg/dL (74-106) 03/12/19 07:00 Calcium 8.7 mg/dL (8.5-10.1) 03/12/19 07:00 Total Bilirubin 0.6 mg/dL (0.2-1) 03/12/19 07:00 AST 44 U/L (15-37) H 03/12/19 07:00 ALT 31 U/L (13-61) 03/12/19 07:00 Alkaline Phosphatase 74 U/L (45-117) 03/12/19 07:00 Total Protein 6.5 g/dl (6.4-8.2) 03/12/19 07:00 Albumin 3.3 g/dl (3.4-5.0) L 03/12/19 07:00 RPR Titer Nonreactive (NONREACTIVE) 03/12/19 07:00 Labs noted. Assessment: 03/14/19 09:22 AOX3, in no acute respiratory distress. Full ROM, ambulating in the unit. Withdrawal symptoms. Plan: continue detox.
[2019-03-14] MEDS: PRENATAL VITAMINS W/ FOLIC ACID TABLET (FP) PO SCH (10:34)
[2019-03-14] MEDS: NICOTINE 14 MG/24 HOURS TOPICAL PATCH TD SCH (10:35)
[2019-03-14 13:01] VITALS: BP 136/89; PULSE 88; TEMP 97.6
--- NOTE | 2019-03-14 15:29 | DS ---
[facility] Detox Discharge Summary Admission Date: 03/11/19 Discharge Date: 03/14/19 (Left AMA) - History Present History: Alcohol Dependence, Cocaine Dependence Additional Comments: Pt left AMA. Pt did not complete the detox protocol. Pt states, "i have to go home and take care of my daughter". An attempt to let pt stay and complete the detox protocol failed. Pt is encouraged to follow-up with an outpatient CD program and also to follow-up with his pmd. Pt verbalized understanding. Pt is alert and oriented x3 and in no acute respiratory distress. Pertinent Past History: h/o alcohol and cocaine use disorder. - Physical Exam Results Vital Signs: Vital Signs Temperature 97.6 F 03/14/19 13:00 Pulse Rate 88 03/14/19 13:00 Respiratory Rate 18 03/14/19 13:00 Blood Pressure 136/89 03/14/19 13:00 O2 Sat by Pulse Oximetry (%) Pertinent Admission Physical Exam Findings: withdrawal symptoms. - Treatment Hospital Course: Detox Protocol Followed - Medication Discharge Medications: Ambulatory Orders NK [No Known Home Medication] 03/11/19 - Diagnosis (1) Alcohol dependence with uncomplicated withdrawal Current Visit: Yes Status: Chronic (2) Cannabis dependence Current Visit: Yes Status: Chronic (3) Cocaine dependence Current Visit: Yes Status: Chronic Qualifiers: Substance use status: uncomplicated Qualified Code(s): F14.20 - Cocaine dependence, uncomplicated (4) Nicotine dependence Current Visit: Yes Status: Chronic Qualifiers: Nicotine product type: cigarettes Substance use status: uncomplicated Qualified Code(s): F17.210 - Nicotine dependence, cigarettes, uncomplicated (5) Laceration of neck Current Visit: No Status: Acute (6) Back pain at L4-L5 level Current Visit: No Status: Chronic - AMA Did Patient Leave Against Medical Advice: Yes
[2019-03-15] MEDS ORDERED: chlordiazePOXIDE HCL 10 MG CAPSULE PO SCH (05:00)
[2019-03-16] MEDS ORDERED: chlordiazePOXIDE HCL 10 MG CAPSULE PO ONE (05:00)
== END 2019-03-14 15:30 | disposition home or self-care (01) | DRG 774 ==
LOC: YASAS 19:31 → Y3N 21:45
PROVIDERS: ADMIT Allergy & Immunology; ATTEND Allergy & Immunology
PROC: HZ2ZZZZ Detoxification Services for Substance Abuse Treatment (ICD-10-PCS; principal; 2019-03-11)
DX: F10.230 Alcohol dependence with withdrawal, uncomplicated (principal); F14.20 Cocaine dependence, uncomplicated; F12.20 Cannabis dependence, uncomplicated; F17.210 Nicotine dependence, cigarettes, uncomplicated; F19.24 Other psychoactive substance dependence with psychoactive substance-induced mood disorder; F10.988 Alcohol use, unspecified with other alcohol-induced disorder; I15.8 Other secondary hypertension; M54.5 Low back pain; R45.89 Other symptoms and signs involving emotional state; Z91.81 History of falling
CPT/HCPCS: 36415; 80053; 85027; 86593; 93005; 93010

== ENCOUNTER 2019-10-28 13:56 | Inpatient (IN) | payer OTHER ==
--- NOTE | 2019-10-28 14:15 | BHS.RME ---
Substance Use & Tx History - Substance Use History Alcohol Substance amount: 2 pints Vodka Frequency of use: Daily Substance route: Oral Date of Last Use: 10/28/19 Cocaine- Powder Substance amount: $40 Frequency of use: Less than 3 times per week Substance route: Inhalation (ex: sniffing or snorting) Date of Last Use: 10/28/19 Nicotine Substance amount: 5 cigs Frequency of use: Daily Substance route: Oral, Smoking Date of Last Use: 10/28/19 - Last Treatment Date of last treatment: February 2019 Treatment type: Substance Use Disorder (JADA) Where was last treatment: Detox Physical/Psych/Mental Status - Behavior General Behavior: Decreased activity Eye Contact: Normal - Cooperativeness Cooperativeness: Cooperative - Thinking Thought Processes: Tight Thought content: Future oriented - Physical Health Problems Is patient presently having any pain?: Yes (chronic low back pain) Does patient presently have any injuries (include location): No Does patient currently have a fever: No CIWA Nausea/Vomitin-No Nausea/No Vomiting Muscle Tremors: None Anxiety: 1-Mildly Anxious Agitation: 1-Slight > Activity Paroxysmal Sweats: 1-Minimal Palms Moist Orientation: 2-Disoriented Date<2 days Tacttile Disturbances: 0-None Auditory Disturbances: 0-None Visual Disturbances: 0-None Headache: 0-None Present CIWA-Ar Total Score: 5
[2019-10-28 16:24] VITALS: BMI 25.1
--- NOTE | 2019-10-28 17:23 | HP ---
<Syed Jama - Last Filed: 10/28/19 17:58> CIWA Score Nausea/Vomitin-No Nausea/No Vomiting Muscle Tremors: None Anxiety: 1-Mildly Anxious Agitation: 1-Slight > Activity Paroxysmal Sweats: 1-Minimal Palms Moist Orientation: 2-Disoriented Date<2 days Tacttile Disturbances: 0-None Auditory Disturbances: 0-None Visual Disturbances: 0-None Headache: 0-None Present CIWA-Ar Total Score: 5 - Admission Criteria OASAS Guidelines: Admission for Medically Managed Detox: Requires at least one of the followin. CIWA greater than 12 2. Seizures within the past 24 hours 3. Delirium tremens within the past 24 hours 4. Hallucinations within the past 24 hours 5. Acute intervention needed for co occurring medical disorder 6. Acute intervention needed for co occurring psychiatric disorder 7. Severe withdrawal that cannot be handled at a lower level of care (continued vomiting, continued diarrhea, abnormal vital signs) requiring intravenous medication and/or fluids 8. Admitting History and Physical - Admission Chief Complaint: Patient is a 39 year old male with history of back pain, alcohol use disorder, cocaine dependence, nicotine dependence, presents for detox. History of Present Illness: Patient is a 39 year old male with history of back pain, alcohol use disorder, cocaine dependence, nicotine dependence, presents for detox. PMH: chronic back pain PSH: denies Social: currently homeless. 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 Psych: denies Legal: denies Patient meets criteria for detox admission given his level of intoxication (CONCHIS 0.125) - Substance Use History Alcohol Substance amount: 2 pints Vodka Frequency of use: Daily Substance route: Oral Date of Last Use: 10/28/19 Cocaine- Powder Substance amount: $40 Frequency of use: Less than 3 times per week Substance route: Inhalation (ex: sniffing or snorting) Date of Last Use: 10/28/19 Nicotine Substance amount: 5 cigs Frequency of use: Daily Substance route: Oral, Smoking Date of Last Use: 10/28/19 - Last Treatment Date of last treatment: February 2019 Treatment type: Substance Use Disorder (JADA) Where was last treatment: Detox History Source: Patient Limitations to Obtaining History: No Limitations - Smoking History Smoking history: Current every day smoker Have you smoked in the past 12 months: Yes Aproximately how many cigarettes per day: 10 - Alcohol/Substance Use Hx Alcohol Use: Yes Admission [facility] Chief Complaint: Patient is a 39 year old male with history of back pain, alcohol use disorder, cocaine dependence, nicotine dependence, presents for detox. Allergies/Adverse Reactions: Allergies Allergy/AdvReac Type Severity Reaction Status Date / Time seafood Allergy Uncoded 10/28/19 18:14 Exam Limitations: No Limitations - Ebola screening Have you traveled outside of the country in the last 21 days: No Have you been sick,other than usual withdrawal symptoms: No Do you have a fever: No - Review of Systems Constitutional: No Symptoms Reported EENT: denies: Blurred Vision, Hearing Loss Respiratory: denies: Cough, Shortness of Breath Cardiac: denies: Chest Pain, Palpitations GI: denies: Nausea, Vomiting, Abdominal cramping : denies: Burning, Dysuria Musculoskeletal: reports: Back Pain (chronic) Neuro: denies: Numbness, Paresthesia, Weakness Hematology: denies: Blood Clots, Easy Bleeding Psychiatric: reports: other (denies suicidal, homicidal ideation) Patient History - Patient Medical History Hx Anemia: No Hx Asthma: No Hx Chronic Obstructive Pulmonary Disease (COPD): No Hx Cancer: No Hx Cardiac Disorders: No Hx Congestive Heart Failure: No Hx Hypertension: Yes (WITH INTOXICATION) Hx Hypercholesterolemia: No Hx Pacemaker: No HX Cerebrovascular Accident: No Hx Seizures: No Hx Diabetes: No Hx Gastrointestinal Disorders: No Hx Liver Disease: No Hx Genitourinary Disorders: No Hx Sexually Transmitted Disorders: No Hx Renal Disease (ESRD): No Hx Thyroid Disease: No Hx Human Immunodeficiency Virus (HIV): No Hx Hepatitis C: No Hx Depression: No Hx Suicide Attempt: No Hx Bipolar Disorder: No Hx Schizophrenia: No - Patient Surgical History Past Surgical History: No Hx Neurologic Surgery: No Hx Cataract Extraction: No Hx Cardiac Surgery: No Hx Lung Surgery: No Hx Breast Surgery: No Hx Breast Biopsy: No Hx Abdominal Surgery: No Hx Appendectomy: No Hx Cholecystectomy: No Hx Genitourinary Surgery: No Hx Section: No Hx Orthopedic Surgery: No Hx Hysterectomy: No Anesthesia Reaction: No - PPD History Previous Implant?: Yes Implanted On Prior [facility] Admission?: Yes Date: 03/13/19 Results: 0MM PPD to be Administered?: No - Reproductive History Patient is a Female of Child Bearing Age (11 -55 yrs old): No - Smoking Cessation Smoking history: Current every day smoker Have you smoked in the past 12 months: Yes Aproximately how many cigarettes per day: 5 Cigars Per Day: 0 Hx Chewing Tobacco Use: No Initiated information on smoking cessation: Yes 'Breaking Loose' booklet given: 10/28/19 Admission Physical Exam [facility] - Vital Signs Vital Signs: Vital Signs - 24 hr 10/28/19 16:23 Temperature 96.2 F L Pulse Rate 102 H Respiratory 19 Rate Blood Pressure 123/81 - Physical General Appearance: Yes: Within Normal Limits, No Apparent Distress, Nourished HEENTM: Yes: EOMI, ENID Respiratory: Yes: Lungs Clear, Normal Breath Sounds, No Respiratory Distress, No Accessory Muscle Use Neck: Yes: Supple Cardiology: Yes: Regular Rhythm, Regular Rate, S1, S2 Abdominal: Yes: Normal Bowel Sounds, Non Tender, Flat, Soft Extremities: Yes: Within Normal Limits, Normal Range of Motion Neurological: Yes: Within Normal Limits, Motor Strength 5/5 Integumentary: Yes: Dry, Warm - Diagnostic (1) Alcohol dependence with intoxication, unspecified Current Visit: Yes Status: Acute Comment: HTN (2) Cocaine dependence Current Visit: No Status: Chronic Qualifiers: Substance use status: uncomplicated Qualified Code(s): F14.20 - Cocaine dependence, uncomplicated (3) Nicotine dependence Current Visit: No Status: Chronic Qualifiers: Nicotine product type: cigarettes Substance use status: uncomplicated Qualified Code(s): F17.210 - Nicotine dependence, cigarettes, uncomplicated Cleared for Admission [facility] - Detox or Rehab [facility] Level of Care: Medically Managed Detox Regimen/Protocol: Librium Claeared for Rehab Admission: No Screened but not Admitted - Documentation of Visit Screened but not Admitted: No Breathalyzer - Breathalyzer Breathalyzer: 0.215 Urine Drug Screen - Test Device Lot number: [id number] Expiration date: 06/25/21 - Control Is test valid?: Yes - Results Drug screen NEGATIVE: No Urine drug screen results: BARRETT-Cocaine Inpatient Rehab Admission - Rehab Decision to Admit Inpatient rehab admission?: No <Radha Jimenez - Last Filed: 10/29/19 08:11> CIWA Score - Admission Criteria OASAS Guidelines: Admission for Medically Managed Detox: Requires at least one of the followin. CIWA greater than 12 2. Seizures within the past 24 hours 3. Delirium tremens within the past 24 hours 4. Hallucinations within the past 24 hours 5. Acute intervention needed for co occurring medical disorder 6. Acute intervention needed for co occurring psychiatric disorder 7. Severe withdrawal that cannot be handled at a lower level of care (continued vomiting, continued diarrhea, abnormal vital signs) requiring intravenous medication and/or fluids 8. Admitting History and Physical - Admission History of Present Illness: Meets criteria: CIWA does not reflect full extent of withdrawal as well as high risk of relapse given homeless status. Patient History - Substances abused Alcohol Substance route: Oral Frequency: Daily Amount used: LIQ- 3 PINTS Age of first use: 17 Date of last use: 10/28/19 Cocaine Substance route: Inhalation Frequency: Daily Amount used: $40 WORTH Age of first use: 17 Date of last use: 10/28/19 Admission Physical Exam [facility] - Vital Signs Vital Signs: Vital Signs - 24 hr 10/28/19 10/28/19 10/28/19 16:23 18:05 18:48 Temperature 96.2 F L 96.2 F L 97.3 F L Pulse Rate 102 H 102 H 86 Respiratory 19 19 18 Rate Blood Pressure 123/81 123/81 123/74 O2 Sat by Pulse Oximetry (%) 10/28/19 10/29/19 20:38 05:09 Temperature 98.2 F 97.1 F L Pulse Rate 88 54 L Respiratory 18 18 Rate Blood Pressure 122/69 125/73 O2 Sat by Pulse 99 100 Oximetry (%)
[2019-10-28] MEDS ORDERED: chlordiazePOXIDE HCL 25 MG CAPSULE PO PRN (17:24)
[2019-10-28] MEDS ORDERED: ONDANSETRON *ODT* 4 MG TABLET SL PRN (17:24)
[2019-10-28] MEDS ORDERED: NICOTINE POLACRILEX 2 MG GUM BUC PRN (17:24)
[2019-10-28] MEDS ORDERED: MENTHOL/PHENOL 1 EACH UD MM PRN (17:24)
[2019-10-28] MEDS ORDERED: MAGNESIUM HYDROX 2400MG/30ML ORAL SUSPENSION 30 ML CUP PO PRN (17:24)
[2019-10-28] MEDS ORDERED: BISMUTH SUBSALICYLATE 524 MG/30 ML UD PO PRN (17:24)
[2019-10-28] MEDS ORDERED: ACETAMINOPHEN 325 MG TABLET (FP) PO PRN ×2 (17:24)
[2019-10-28] MEDS ORDERED: MAG HYDROX/AL HYDROX/SIMETH 30 ML UNIT-DOSE CUP PO PRN (17:24)
[2019-10-28] MEDS ORDERED: MAGNESIUM CITRATE 300 ML BOTTLE PO PRN (17:24)
[2019-10-28] MEDS: METHOCARBAMOL 500 MG TABLET PO PRN (19:08)
[2019-10-28] MEDS: IBUPROFEN 400 MG TABLET (FP) PO PRN (19:08)
[2019-10-28] MEDS: hydrOXYzine PAMOATE 25 MG CAPSULE (FP) PO SCH ×2 (19:11→22:06)
[2019-10-28] MEDS: THIAMINE HCL 100 MG TABLET (FP) PO SCH (22:06)
[2019-10-28] MEDS: MELATONIN 5 MG TABLETS PO SCH (22:06)
[2019-10-28] MEDS: chlordiazePOXIDE HCL 25 MG CAPSULE PO SCH (22:06)
[2019-10-29] MEDS: hydrOXYzine PAMOATE 25 MG CAPSULE (FP) PO SCH ×5 (05:51→22:19)
[2019-10-29] MEDS: chlordiazePOXIDE HCL 25 MG CAPSULE PO SCH ×4 (05:51→22:19)
[2019-10-29] MEDS: METHOCARBAMOL 500 MG TABLET PO PRN ×2 (05:54→17:59)
[2019-10-29] MEDS: PRENATAL VITAMINS W/ FOLIC ACID TABLET (FP) PO SCH (10:08)
[2019-10-29] MEDS: NICOTINE 7 MG/24 HOURS TOPICAL PATCH TD SCH (10:08)
[2019-10-29] MEDS: IBUPROFEN 400 MG TABLET (FP) PO PRN ×2 (10:12→17:59)
[2019-10-29 10:21] LABS: MCH 28.6 pg (25.7-33.7); MCHC 32.4 g/dl (32.0-35.9); MEAN CELL VOLUME 88.1 fl (80-96); MEAN PLT VOLUME 8.9 fl (7.5-11.1); PLATELET COUNT 192 K/MM3 (134-434); RBC 4.54 M/mm3 (4.00-5.60); RDW 15.8 % (11.9-15.9); WHITE BLOOD COUNT 3.4 K/mm3 (4.0-10.0)
[2019-10-29 10:36] LABS: ALBUMIN 3.2 g/dl (3.4-5.0); BILIRUBIN,TOTAL 0.8 mg/dL (0.2-1); BLOOD UREA NITROGEN 12.9 mg/dL (7-18); CALCIUM 8.7 mg/dL (8.5-10.1); CREATININE 0.9 mg/dL (0.55-1.3); POTASSIUM 3.9 mmol/L (3.5-5.1); TOT PROT 6.4 g/dl (6.4-8.2)
--- NOTE | 2019-10-29 10:50 | PN ---
S CIWA - CIWA Score Nausea/Vomitin Muscle Tremors: 3 Anxiety: 2 Agitation: 2 Paroxysmal Sweats: No Perspiration Orientation: 0-Oriented Tacttile Disturbances: 1-Very Mild Itch/Numbness Auditory Disturbances: 0-None Visual Disturbances: 0-None Headache: 2-Mild CIWA-Ar Total Score: 12 S Progress Note (SOAP) Subjective: alert,irritable,anxious,interrupted sleep,pain in the body,back,nausea Objective: 10/29/19 10:49 Vital Signs Temperature 97.3 F L 10/29/19 08:41 Pulse Rate 98 H 10/29/19 08:41 Respiratory Rate 16 10/29/19 08:41 Blood Pressure 107/89 10/29/19 08:41 O2 Sat by Pulse Oximetry (%) 100 10/29/19 08:41 Laboratory Last Values WBC 3.4 K/mm3 (4.0-10.0) L 10/29/19 07:50 RBC 4.54 M/mm3 (4.00-5.60) 10/29/19 07:50 Hgb 13.0 GM/dL (11.7-16.9) 10/29/19 07:50 Hct 40.0 % (35.4-49) 10/29/19 07:50 MCV 88.1 fl (80-96) 10/29/19 07:50 MCH 28.6 pg (25.7-33.7) 10/29/19 07:50 MCHC 32.4 g/dl (32.0-35.9) 10/29/19 07:50 RDW 15.8 % (11.9-15.9) 10/29/19 07:50 Plt Count 192 K/MM3 (134-434) 10/29/19 07:50 MPV 8.9 fl (7.5-11.1) 10/29/19 07:50 Sodium 139 mmol/L (136-145) 10/29/19 07:50 Potassium 3.9 mmol/L (3.5-5.1) 10/29/19 07:50 Chloride 105 mmol/L (98-107) 10/29/19 07:50 Carbon Dioxide 31 mmol/L (21-32) 10/29/19 07:50 Anion Gap 3 MMOL/L (8-16) L 10/29/19 07:50 BUN 12.9 mg/dL (7-18) 10/29/19 07:50 Creatinine 0.9 mg/dL (0.55-1.3) 10/29/19 07:50 Est GFR (CKD-EPI)AfAm 125.13 10/29/19 07:50 Est GFR (CKD-EPI)NonAf 107.97 10/29/19 07:50 Random Glucose 89 mg/dL (74-106) 10/29/19 07:50 Calcium 8.7 mg/dL (8.5-10.1) 10/29/19 07:50 Total Bilirubin 0.8 mg/dL (0.2-1) 10/29/19 07:50 AST 47 U/L (15-37) H 10/29/19 07:50 ALT 30 U/L (13-61) 10/29/19 07:50 Alkaline Phosphatase 66 U/L (45-117) 10/29/19 07:50 Total Protein 6.4 g/dl (6.4-8.2) 10/29/19 07:50 Albumin 3.2 g/dl (3.4-5.0) L 10/29/19 07:50 Assessment: 10/29/19 10:50 withdrawal symptom Plan: continue detox librium regimen
[2019-10-29] MEDS: THIAMINE HCL 100 MG TABLET (FP) PO SCH (22:20)
[2019-10-29] MEDS: MELATONIN 5 MG TABLETS PO SCH (22:20)
[2019-10-30] MEDS: hydrOXYzine PAMOATE 25 MG CAPSULE (FP) PO SCH ×4 (05:27→17:12)
[2019-10-30] MEDS: chlordiazePOXIDE HCL 25 MG CAPSULE PO SCH ×3 (05:27→17:12)
[2019-10-30] MEDS ORDERED: LIDOCAINE 5% TOPICAL PATCH TP SCH (10:00)
--- NOTE | 2019-10-30 10:43 | PN ---
S CIWA - CIWA Score Nausea/Vomitin Muscle Tremors: 2 Anxiety: 2 Agitation: 2 Paroxysmal Sweats: No Perspiration Orientation: 0-Oriented Tacttile Disturbances: 1-Very Mild Itch/Numbness Auditory Disturbances: 0-None Visual Disturbances: 0-None Headache: 2-Mild CIWA-Ar Total Score: 11 S Progress Note (SOAP) Subjective: alert,irritable,anxious,interrupted sleep,tremor,pain in the back,nausea Objective: 10/30/19 10:40 Vital Signs Temperature 97.1 F L 10/30/19 08:44 Pulse Rate 69 10/30/19 08:44 Respiratory Rate 16 10/30/19 08:44 Blood Pressure 122/68 10/30/19 08:44 O2 Sat by Pulse Oximetry (%) 100 10/30/19 06:25 10/30/19 10:40 Laboratory Last Values WBC 3.4 K/mm3 (4.0-10.0) L 10/29/19 07:50 RBC 4.54 M/mm3 (4.00-5.60) 10/29/19 07:50 Hgb 13.0 GM/dL (11.7-16.9) 10/29/19 07:50 Hct 40.0 % (35.4-49) 10/29/19 07:50 MCV 88.1 fl (80-96) 10/29/19 07:50 MCH 28.6 pg (25.7-33.7) 10/29/19 07:50 MCHC 32.4 g/dl (32.0-35.9) 10/29/19 07:50 RDW 15.8 % (11.9-15.9) 10/29/19 07:50 Plt Count 192 K/MM3 (134-434) 10/29/19 07:50 MPV 8.9 fl (7.5-11.1) 10/29/19 07:50 Sodium 139 mmol/L (136-145) 10/29/19 07:50 Potassium 3.9 mmol/L (3.5-5.1) 10/29/19 07:50 Chloride 105 mmol/L (98-107) 10/29/19 07:50 Carbon Dioxide 31 mmol/L (21-32) 10/29/19 07:50 Anion Gap 3 MMOL/L (8-16) L 10/29/19 07:50 BUN 12.9 mg/dL (7-18) 10/29/19 07:50 Creatinine 0.9 mg/dL (0.55-1.3) 10/29/19 07:50 Est GFR (CKD-EPI)AfAm 125.13 10/29/19 07:50 Est GFR (CKD-EPI)NonAf 107.97 10/29/19 07:50 Random Glucose 89 mg/dL (74-106) 10/29/19 07:50 Calcium 8.7 mg/dL (8.5-10.1) 10/29/19 07:50 Total Bilirubin 0.8 mg/dL (0.2-1) 10/29/19 07:50 AST 47 U/L (15-37) H 10/29/19 07:50 ALT 30 U/L (13-61) 10/29/19 07:50 Alkaline Phosphatase 66 U/L (45-117) 10/29/19 07:50 Total Protein 6.4 g/dl (6.4-8.2) 10/29/19 07:50 Albumin 3.2 g/dl (3.4-5.0) L 10/29/19 07:50 Syphilis Serology Non-reactive (NONREACTIVE) 10/29/19 07:50 COVID-19 (OLGA) Not detected (Not Detected) 10/28/19 18:20 Assessment: 10/30/19 10:41 withdrawal symptom Plan: continue detox librium regimen,lidoderm patch to back,increase motrin to 600 mgs po q 6 hrs prn for pain
[2019-10-30] MEDS: NICOTINE 7 MG/24 HOURS TOPICAL PATCH TD SCH (10:49)
[2019-10-30] MEDS: IBUPROFEN 600 MG TABLET (FP) PO PRN ×2 (10:51→18:13)
[2019-10-30] MEDS: PRENATAL VITAMINS W/ FOLIC ACID TABLET (FP) PO SCH (10:53)
--- NOTE | 2019-10-30 16:47 | PN ---
[facility] Progress Note Note: Called by nursing staff that patient is requesting to leave. Patient endorses that he has Worker's Compensation hearing tomorrow, and requests to leave so that he can make it for his hearing. Counselled patient of risks of leaving before completion of Librium taper including but not limited to worsening withdrawal symptoms, fall, trauma to head or any part of body, permanent disability, . Counselled patient not to drive or operate any machinery. Patient is of sound mind with capacity to make decisions. Alert, oriented to person, place, time. Patient left facility against medical advice.
[2019-10-30 17:56] VITALS: BP 146/93; PULSE 80; TEMP 96.6
[2019-10-30] MEDS: METHOCARBAMOL 500 MG TABLET PO PRN (18:12)
--- NOTE | 2019-10-30 21:07 | DS ---
[facility] Detox Discharge Summary Admission Date: 10/28/19 Discharge Date: 10/30/19 - History Additional Comments: Patient is leaving against medical advice. He reports that worker's compensation hearing tomorrow at 9.00AM. He reports that he forgot to notify anyone on admission. Risks and consequences of not completing detox reinforced and patient verbalized understanding. Patient is alert and oriented x 3, in no acute distress, ambulates independently. He signed the AMA form and left. Pertinent Past History: Alcohol dependence Cannabis dependence Cocaine dependence Nicotine dependence Insomnia Right elbow pain Substance induced sleep disorder Back pain Depression Foot pain - Physical Exam Results Vital Signs: Vital Signs Temperature 96.6 F L 10/30/19 17:01 Pulse Rate 80 10/30/19 17:01 Respiratory Rate 18 10/30/19 17:01 Blood Pressure 146/93 10/30/19 17:01 O2 Sat by Pulse Oximetry (%) 98 10/30/19 17:01 Laboratory Last Values WBC 3.4 K/mm3 (4.0-10.0) L 10/29/19 07:50 RBC 4.54 M/mm3 (4.00-5.60) 10/29/19 07:50 Hgb 13.0 GM/dL (11.7-16.9) 10/29/19 07:50 Hct 40.0 % (35.4-49) 10/29/19 07:50 MCV 88.1 fl (80-96) 10/29/19 07:50 MCH 28.6 pg (25.7-33.7) 10/29/19 07:50 MCHC 32.4 g/dl (32.0-35.9) 10/29/19 07:50 RDW 15.8 % (11.9-15.9) 10/29/19 07:50 Plt Count 192 K/MM3 (134-434) 10/29/19 07:50 MPV 8.9 fl (7.5-11.1) 10/29/19 07:50 Sodium 139 mmol/L (136-145) 10/29/19 07:50 Potassium 3.9 mmol/L (3.5-5.1) 10/29/19 07:50 Chloride 105 mmol/L (98-107) 10/29/19 07:50 Carbon Dioxide 31 mmol/L (21-32) 10/29/19 07:50 Anion Gap 3 MMOL/L (8-16) L 10/29/19 07:50 BUN 12.9 mg/dL (7-18) 10/29/19 07:50 Creatinine 0.9 mg/dL (0.55-1.3) 10/29/19 07:50 Est GFR (CKD-EPI)AfAm 125.13 10/29/19 07:50 Est GFR (CKD-EPI)NonAf 107.97 10/29/19 07:50 Random Glucose 89 mg/dL (74-106) 10/29/19 07:50 Calcium 8.7 mg/dL (8.5-10.1) 10/29/19 07:50 Total Bilirubin 0.8 mg/dL (0.2-1) 10/29/19 07:50 AST 47 U/L (15-37) H 10/29/19 07:50 ALT 30 U/L (13-61) 10/29/19 07:50 Alkaline Phosphatase 66 U/L (45-117) 10/29/19 07:50 Total Protein 6.4 g/dl (6.4-8.2) 10/29/19 07:50 Albumin 3.2 g/dl (3.4-5.0) L 10/29/19 07:50 Syphilis Serology Non-reactive (NONREACTIVE) 10/29/19 07:50 COVID-19 (OLGA) Not detected (Not Detected) 10/28/19 18:20 Labs reviewed Pertinent Admission Physical Exam Findings: Alcohol withdrawal symptoms - Medication Discharge Medications: Ambulatory Orders Oxycodone HCl/Acetaminophen [Percocet 10-325 mg Tablet] 1 each PO DAILY PRN 10/28/19 - Diagnosis (1) Foot pain Current Visit: No Status: Acute (2) Insomnia Current Visit: No Status: Acute (3) Pain in joint of right elbow Current Visit: Yes Status: Chronic (4) Substance-induced sleep disorder Current Visit: No Status: Acute (5) Alcohol dependence with uncomplicated withdrawal Current Visit: Yes Status: Chronic (6) Back pain at L4-L5 level Current Visit: Yes Status: Chronic (7) Cannabis dependence Current Visit: No Status: Chronic (8) Cocaine dependence Current Visit: Yes Status: Chronic Qualifiers: Substance use status: uncomplicated Qualified Code(s): F14.20 - Cocaine dependence, uncomplicated (9) Depression Current Visit: Yes Status: Chronic (10) Nicotine dependence Current Visit: Yes Status: Chronic Qualifiers: Nicotine product type: cigarettes Substance use status: uncomplicated Qualified Code(s): F17.210 - Nicotine dependence, cigarettes, uncomplicated (11) Drug-induced mood disorder Current Visit: Yes Status: Chronic - AMA Did Patient Leave Against Medical Advice: Yes
[2019-10-30] MEDS ORDERED: LIDOCAINE PATCH REMOVAL MC SCH (22:00)
[2019-10-31] MEDS ORDERED: chlordiazePOXIDE HCL 10 MG CAPSULE PO PRN
[2019-10-31] MEDS ORDERED: chlordiazePOXIDE HCL 10 MG CAPSULE PO SCH (05:00)
[2019-11-01] MEDS ORDERED: chlordiazePOXIDE HCL 10 MG CAPSULE PO SCH (05:00)
[2019-11-02] MEDS ORDERED: chlordiazePOXIDE HCL 10 MG CAPSULE PO ONE (05:00)
== END 2019-10-30 20:50 | disposition left against medical advice (07) | DRG 770 ==
LOC: YASAS 13:56 → Y6N 17:46
PROVIDERS: ADMIT Allergy & Immunology; ATTEND Allergy & Immunology
PROC: HZ2ZZZZ Detoxification Services for Substance Abuse Treatment (ICD-10-PCS; principal; 2019-10-28)
DX: F10.230 Alcohol dependence with withdrawal, uncomplicated (principal); F10.220 Alcohol dependence with intoxication, uncomplicated; F14.20 Cocaine dependence, uncomplicated; F17.210 Nicotine dependence, cigarettes, uncomplicated; F19.24 Other psychoactive substance dependence with psychoactive substance-induced mood disorder; F19.282 Other psychoactive substance dependence with psychoactive substance-induced sleep disorder; F32.9 Major depressive disorder, single episode, unspecified; G47.00 Insomnia, unspecified; M25.521 Pain in right elbow; M45.4 Ankylosing spondylitis of thoracic region; G89.29 Other chronic pain; Z91.013 Allergy to seafood; Z59.0 Homelessness
CPT/HCPCS: 36415; 80053; 85027; 86780; U0003

== ENCOUNTER 2020-02-07 08:14 | Inpatient (IN) | payer OTHER ==
[2020-02-07 09:28] VITALS: BMI 26.6
[2020-02-07] MEDS ORDERED: MAGNESIUM HYDROX 2400MG/30ML ORAL SUSPENSION 30 ML CUP PO PRN (10:31)
[2020-02-07] MEDS ORDERED: MENTHOL/PHENOL 1 EACH UD MM PRN (10:31)
[2020-02-07] MEDS ORDERED: ONDANSETRON *ODT* 4 MG TABLET SL PRN (10:31)
[2020-02-07] MEDS ORDERED: NICOTINE POLACRILEX 2 MG GUM BUC PRN (10:31)
[2020-02-07] MEDS ORDERED: BISMUTH SUBSALICYLATE 262 MG/15 ML BTL PO PRN (10:31)
[2020-02-07] MEDS ORDERED: chlordiazePOXIDE HCL 25 MG CAPSULE PO PRN (10:31)
[2020-02-07] MEDS ORDERED: MAG HYDROX/AL HYDROX/SIMETH 30 ML UNIT-DOSE CUP PO PRN (10:31)
[2020-02-07] MEDS ORDERED: MAGNESIUM CITRATE 300 ML BOTTLE PO PRN (10:31)
[2020-02-07] MEDS ORDERED: ACETAMINOPHEN 325 MG TABLET (FP) PO PRN ×2 (10:31)
[2020-02-07] MEDS ORDERED: SUVOREXANT 5 MG TABLET PO PRN (10:33)
[2020-02-07] MEDS: NICOTINE 7 MG/24 HOURS TOPICAL PATCH TD SCH ×2 (11:25→11:43)
[2020-02-07] MEDS: chlordiazePOXIDE HCL 25 MG CAPSULE PO SCH ×3 (11:26→22:30)
[2020-02-07] MEDS: PRENATAL VITAMINS W/ FOLIC ACID TABLET (FP) PO SCH (11:26)
[2020-02-07] MEDS: hydrOXYzine PAMOATE 25 MG CAPSULE (FP) PO SCH ×3 (14:14→22:30)
[2020-02-07 14:29] LABS: POTASSIUM 3.8 mmol/L (3.5-5.1)
[2020-02-07 14:31] LABS: HEMATOCRIT 45.3 % (35.4-49); HEMOGLOBIN 14.8 GM/dL (11.7-16.9); MCH 29.4 pg (25.7-33.7); MCHC 32.7 g/dl (32.0-35.9); MEAN CELL VOLUME 89.8 fl (80-96); MEAN PLT VOLUME 9.5 fl (7.5-11.1); PLATELET COUNT 228 K/MM3 (134-434); RBC 5.05 M/mm3 (4.00-5.60); RDW 14.1 % (11.9-15.9); WHITE BLOOD COUNT 5.4 K/mm3 (4.0-10.0)
[2020-02-07 14:32] LABS: CALCIUM 9.2 mg/dL (8.5-10.1)
[2020-02-07 14:33] LABS: ALBUMIN 4.3 g/dl (3.4-5.0); BLOOD UREA NITROGEN 11.5 mg/dL (7-18)
[2020-02-07 14:38] LABS: BILIRUBIN,TOTAL 0.4 mg/dL (0.2-1); TOT PROT 8.1 g/dl (6.4-8.2)
[2020-02-07 15:30] LABS: HIV INTERPRETATION NEGATIVE (NEGATIVE)
[2020-02-07] MEDS: MELATONIN 5 MG TABLETS PO SCH (22:30)
[2020-02-07] MEDS: THIAMINE HCL 100 MG TABLET (FP) PO SCH (22:30)
[2020-02-08] MEDS: hydrOXYzine PAMOATE 25 MG CAPSULE (FP) PO SCH ×5 (07:08→22:10)
[2020-02-08] MEDS: chlordiazePOXIDE HCL 25 MG CAPSULE PO SCH ×4 (07:08→22:10)
[2020-02-08] MEDS: IBUPROFEN 400 MG TABLET (FP) PO PRN (07:35)
[2020-02-08] MEDS: NICOTINE 7 MG/24 HOURS TOPICAL PATCH TD SCH (10:08)
[2020-02-08] MEDS: PRENATAL VITAMINS W/ FOLIC ACID TABLET (FP) PO SCH (10:08)
[2020-02-08] MEDS: METHOCARBAMOL 500 MG TABLET PO PRN (10:09)
[2020-02-08] MEDS: THIAMINE HCL 100 MG TABLET (FP) PO SCH (22:10)
[2020-02-08] MEDS: MELATONIN 5 MG TABLETS PO SCH (22:10)
[2020-02-09] MEDS: hydrOXYzine PAMOATE 25 MG CAPSULE (FP) PO SCH ×3 (06:24→13:15)
[2020-02-09] MEDS: chlordiazePOXIDE HCL 25 MG CAPSULE PO SCH ×4 (06:24→22:00)
[2020-02-09] MEDS: PRENATAL VITAMINS W/ FOLIC ACID TABLET (FP) PO SCH (10:08)
[2020-02-09] MEDS: NICOTINE 7 MG/24 HOURS TOPICAL PATCH TD SCH (10:41)
[2020-02-09] MEDS ORDERED: MASKS NR ONE (10:44)
[2020-02-09] MEDS ORDERED: SUVOREXANT 5 MG TABLET PO PRN (22:00)
[2020-02-09] MEDS: MELATONIN 5 MG TABLETS PO SCH (22:00)
[2020-02-09] MEDS: THIAMINE HCL 100 MG TABLET (FP) PO SCH (22:00)
[2020-02-10] MEDS ORDERED: chlordiazePOXIDE HCL 10 MG CAPSULE PO PRN
[2020-02-10] MEDS: chlordiazePOXIDE HCL 10 MG CAPSULE PO SCH ×4 (05:58→22:01)
[2020-02-10] MEDS: PRENATAL VITAMINS W/ FOLIC ACID TABLET (FP) PO SCH (10:17)
[2020-02-10] MEDS: NICOTINE 7 MG/24 HOURS TOPICAL PATCH TD SCH (10:18)
[2020-02-10] MEDS: IBUPROFEN 400 MG TABLET (FP) PO PRN ×2 (10:19→17:19)
[2020-02-10] MEDS: hydrOXYzine PAMOATE 25 MG CAPSULE (FP) PO PRN ×2 (13:14→17:19)
[2020-02-10] MEDS: MELATONIN 5 MG TABLETS PO SCH (22:01)
[2020-02-10] MEDS: THIAMINE HCL 100 MG TABLET (FP) PO SCH (22:01)
[2020-02-10] MEDS: METHOCARBAMOL 500 MG TABLET PO PRN (22:01)
[2020-02-11] MEDS ORDERED: chlordiazePOXIDE HCL 10 MG CAPSULE PO SCH (05:00)
[2020-02-11 09:04] VITALS: BP 125/89; PULSE 98; TEMP 98.2
[2020-02-11] MEDS: NICOTINE 7 MG/24 HOURS TOPICAL PATCH TD SCH (09:44)
[2020-02-11] MEDS: PRENATAL VITAMINS W/ FOLIC ACID TABLET (FP) PO SCH (09:44)
[2020-02-12] MEDS ORDERED: chlordiazePOXIDE HCL 10 MG CAPSULE PO ONE (05:00)
== END 2020-02-11 09:42 | disposition home or self-care (01) | DRG 775 ==
LOC: YASAS 08:14 → Y3N 10:26
PROVIDERS: ADMIT Allergy & Immunology; ATTEND Allergy & Immunology
PROC: HZ2ZZZZ Detoxification Services for Substance Abuse Treatment (ICD-10-PCS; principal; 2020-02-07)
DX: F10.230 Alcohol dependence with withdrawal, uncomplicated (principal); F12.20 Cannabis dependence, uncomplicated; F17.213 Nicotine dependence, cigarettes, with withdrawal; F19.24 Other psychoactive substance dependence with psychoactive substance-induced mood disorder; G47.00 Insomnia, unspecified; M54.5 Low back pain; G89.29 Other chronic pain; R45.89 Other symptoms and signs involving emotional state; Z91.013 Allergy to seafood
CPT/HCPCS: 36415; 80053; 85027; 86780; 87389; C9803; U0003

== ENCOUNTER 2020-07-05 06:52 | Inpatient (IN) | payer OTHER ==
[2020-07-05 09:49] VITALS: BMI 25.7
[2020-07-05] MEDS ORDERED: ONDANSETRON *ODT* 4 MG TABLET SL PRN (09:59)
[2020-07-05] MEDS ORDERED: MAG HYDROX/AL HYDROX/SIMETH 30 ML UNIT-DOSE CUP PO PRN (09:59)
[2020-07-05] MEDS ORDERED: NICOTINE POLACRILEX 2 MG GUM BUC PRN (09:59)
[2020-07-05] MEDS ORDERED: IBUPROFEN 400 MG TABLET (FP) PO PRN (09:59)
[2020-07-05] MEDS ORDERED: hydrOXYzine PAMOATE 25 MG CAPSULE (FP) PO PRN (09:59)
[2020-07-05] MEDS ORDERED: ACETAMINOPHEN 325 MG TABLET (FP) PO PRN ×2 (09:59)
[2020-07-05] MEDS ORDERED: BISMUTH SUBSALICYLATE 524 MG/30 ML UD PO PRN (09:59)
[2020-07-05] MEDS ORDERED: METHOCARBAMOL 500 MG TABLET PO PRN (09:59)
[2020-07-05] MEDS ORDERED: MAGNESIUM HYDROX 2400MG/30ML ORAL SUSPENSION 30 ML CUP PO PRN (09:59)
[2020-07-05] MEDS ORDERED: MENTHOL/PHENOL 1 EACH UD MM PRN (09:59)
[2020-07-05] MEDS ORDERED: MAGNESIUM CITRATE 300 ML BOTTLE PO PRN (09:59)
[2020-07-05] MEDS ORDERED: PRENATAL VITAMINS W/ FOLIC ACID TABLET (FP) PO SCH (10:00)
[2020-07-05] MEDS ORDERED: NICOTINE 7 MG/24 HOURS TOPICAL PATCH TD SCH (10:00)
[2020-07-05 13:30] VITALS: TEMP 97.3
[2020-07-05 19:36] VITALS: BP 131/88; PULSE 83
[2020-07-05] MEDS ORDERED: MELATONIN 5 MG TABLETS PO SCH (22:00)
[2020-07-05] MEDS ORDERED: THIAMINE HCL 100 MG TABLET (FP) PO SCH (22:00)
== END 2020-07-05 19:21 | disposition left against medical advice (07) | DRG 770 ==
LOC: YASAS 06:52 → Y3N 11:30
PROVIDERS: ADMIT Allergy & Immunology; ATTEND Allergy & Immunology
PROC: HZ2ZZZZ Detoxification Services for Substance Abuse Treatment (ICD-10-PCS; principal; 2020-07-05)
DX: F10.230 Alcohol dependence with withdrawal, uncomplicated (principal); F14.20 Cocaine dependence, uncomplicated; F12.20 Cannabis dependence, uncomplicated; F17.210 Nicotine dependence, cigarettes, uncomplicated; F32.9 Major depressive disorder, single episode, unspecified; M54.5 Low back pain; G89.29 Other chronic pain
CPT/HCPCS: C9803; U0003; U0005

== ENCOUNTER 2021-06-15 01:32 | Inpatient (IN) | payer OTHER ==
[2021-06-15] MEDS ORDERED: hydrOXYzine PAMOATE 25 MG CAPSULE (FP) PO PRN (02:07)
[2021-06-15] MEDS ORDERED: DICYCLOMINE HCL 10 MG CAPSULE PO PRN (02:07)
[2021-06-15] MEDS ORDERED: NICOTINE POLACRILEX 2 MG GUM BUC PRN (02:07)
[2021-06-15] MEDS ORDERED: BISMUTH SUBSALICYLATE 524 MG/30 ML PO PRN (02:07)
[2021-06-15] MEDS ORDERED: IBUPROFEN 400 MG TABLET (FP) PO PRN (02:07)
[2021-06-15] MEDS ORDERED: MAG HYDROX/AL HYDROX/SIMETH 30 ML UNIT-DOSE CUP PO PRN (02:07)
[2021-06-15] MEDS ORDERED: MENTHOL/PHENOL 1 EACH UD MM PRN (02:07)
[2021-06-15] MEDS ORDERED: MAGNESIUM CITRATE 300 ML BOTTLE PO PRN (02:07)
[2021-06-15] MEDS ORDERED: MAGNESIUM HYDROX 2400MG/30ML ORAL SUSPENSION 30 ML CUP PO PRN (02:07)
[2021-06-15] MEDS ORDERED: ACETAMINOPHEN 325 MG TABLET (FP) PO PRN ×2 (02:07)
[2021-06-15] MEDS ORDERED: METHOCARBAMOL 500 MG TABLET PO PRN (02:07)
[2021-06-15] MEDS ORDERED: guaiFENesin 200 MG/10 ML 10 ML UNIT-DOSE CUPS PO PRN (02:07)
[2021-06-15] MEDS ORDERED: P-EPHED 60MG/TRIPROLIDI 2.5MG TABLET PO PRN (02:07)
[2021-06-15] MEDS ORDERED: ONDANSETRON *ODT* 4 MG TABLET SL PRN (02:07)
[2021-06-15] MEDS ORDERED: LOPERAMIDE HCL 2 MG CAPSULE PO PRN (02:07)
[2021-06-15] MEDS ORDERED: cloNIDine HCL 0.1 MG TABLET PO ONE (02:15)
[2021-06-15 03:09] VITALS: BMI 21.5
[2021-06-15] MEDS ORDERED: NICOTINE 14 MG/24 HOURS TOPICAL PATCH TD SCH (10:00)
[2021-06-15] MEDS: PRENATAL VITAMINS W/ FOLIC ACID TABLET (FP) PO SCH (10:25)
[2021-06-15] MEDS ORDERED: chlordiazePOXIDE HCL 25 MG CAPSULE PO PRN (12:11)
[2021-06-15 14:49] LABS: CALCIUM 8.1 mg/dL (8.5-10.1)
[2021-06-15 14:50] LABS: ALBUMIN 3.5 g/dl (3.4-5.0); BLOOD UREA NITROGEN 11.8 mg/dL (7-18)
[2021-06-15 14:51] LABS: HEMATOCRIT 35.6 % (35.4-49); MCH 31.3 pg (25.7-33.7); MCHC 33.8 g/dl (32.0-35.9); MEAN CELL VOLUME 92.5 fl (80-96); MEAN PLT VOLUME 9.1 fl (7.5-11.1); PLATELET COUNT 142 10^3/uL (134-434); RBC 3.85 M/mm3 (4.00-5.60); RDW 14.6 % (11.9-15.9); WHITE BLOOD COUNT 3.5 K/mm3 (4.0-10.0)
[2021-06-15 14:53] LABS: CREATININE 0.9 mg/dL (0.55-1.3)
[2021-06-15 14:55] LABS: BILIRUBIN,TOTAL 0.5 mg/dL (0.2-1); TOT PROT 7.2 g/dl (6.4-8.2)
[2021-06-15] MEDS: chlordiazePOXIDE HCL 25 MG CAPSULE PO SCH ×2 (17:50→22:07)
[2021-06-15] MEDS ORDERED: THIAMINE HCL 100 MG TABLET (FP) PO SCH (22:00)
[2021-06-15] MEDS ORDERED: MELATONIN 5 MG TABLETS PO SCH (22:00)
[2021-06-16] MEDS: chlordiazePOXIDE HCL 25 MG CAPSULE PO SCH ×2 (05:23→10:37)
[2021-06-16 09:01] VITALS: BP 138/86; PULSE 59; TEMP 96.6
[2021-06-16] MEDS: PRENATAL VITAMINS W/ FOLIC ACID TABLET (FP) PO SCH (10:41)
[2021-06-17] MEDS ORDERED: chlordiazePOXIDE HCL 25 MG CAPSULE PO SCH (05:00)
[2021-06-18] MEDS ORDERED: chlordiazePOXIDE HCL 10 MG CAPSULE PO PRN
[2021-06-18] MEDS ORDERED: chlordiazePOXIDE HCL 10 MG CAPSULE PO SCH (05:00)
[2021-06-19] MEDS ORDERED: chlordiazePOXIDE HCL 10 MG CAPSULE PO SCH (05:00)
[2021-06-20] MEDS ORDERED: chlordiazePOXIDE HCL 10 MG CAPSULE PO ONE (05:00)
== END 2021-06-16 12:36 | disposition left against medical advice (07) | DRG 770 ==
LOC: YASAS 01:32 → Y3N 03:24
PROVIDERS: ADMIT Allergy & Immunology; ATTEND Allergy & Immunology
PROC: HZ2ZZZZ Detoxification Services for Substance Abuse Treatment (ICD-10-PCS; principal; 2021-06-15)
DX: F10.230 Alcohol dependence with withdrawal, uncomplicated (principal); F10.220 Alcohol dependence with intoxication, uncomplicated; F17.210 Nicotine dependence, cigarettes, uncomplicated; F19.282 Other psychoactive substance dependence with psychoactive substance-induced sleep disorder; F32.A Depression, unspecified; M54.59 Other low back pain; G89.29 Other chronic pain; R63.8 Other symptoms and signs concerning food and fluid intake; R94.5 Abnormal results of liver function studies; R00.0 Tachycardia, unspecified; Z91.013 Allergy to seafood; Z56.0 Unemployment, unspecified; Z59.00 Homelessness unspecified
CPT/HCPCS: 36415; 80053; 85027; 86780; 87811; 93005; 93010; C9803-CS; Q0162; U0003; U0005

== ENCOUNTER 2021-07-19 06:26 | Inpatient (IN) | payer OTHER ==
[2021-07-19] MEDS ORDERED: MAGNESIUM CITRATE 300 ML BOTTLE PO PRN (08:09)
[2021-07-19] MEDS ORDERED: BISMUTH SUBSALICYLATE 262 MG/15 ML BTL PO PRN (08:09)
[2021-07-19] MEDS ORDERED: chlordiazePOXIDE HCL 25 MG CAPSULE PO PRN (08:09)
[2021-07-19] MEDS ORDERED: LOPERAMIDE HCL 2 MG CAPSULE PO PRN (08:09)
[2021-07-19] MEDS ORDERED: ONDANSETRON *ODT* 4 MG TABLET SL PRN (08:09)
[2021-07-19] MEDS ORDERED: IBUPROFEN 400 MG TABLET (FP) PO PRN (08:09)
[2021-07-19] MEDS ORDERED: MAG HYDROX/AL HYDROX/SIMETH 30 ML UNIT-DOSE CUP PO PRN (08:09)
[2021-07-19] MEDS ORDERED: NICOTINE 10 MG CARTRIDGE (INHALER) IH PRN (08:09)
[2021-07-19] MEDS ORDERED: BENZOCAINE/MENTHOL (CHLORASEPTIC ) LOZENGE MM PRN (08:09)
[2021-07-19] MEDS ORDERED: ACETAMINOPHEN 325 MG TABLET (FP) PO PRN ×2 (08:09)
[2021-07-19] MEDS ORDERED: DICYCLOMINE HCL 10 MG CAPSULE PO PRN (08:09)
[2021-07-19] MEDS ORDERED: MAGNESIUM HYDROX 2400MG/30ML ORAL SUSPENSION 30 ML CUP PO PRN (08:09)
[2021-07-19 08:19] VITALS: BMI 21.3
[2021-07-19] MEDS: chlordiazePOXIDE HCL 25 MG CAPSULE PO SCH ×3 (10:30→22:19)
[2021-07-19] MEDS: hydrOXYzine PAMOATE 25 MG CAPSULE (FP) PO SCH ×4 (10:30→22:24)
[2021-07-19] MEDS: PRENATAL VITAMINS W/ FOLIC ACID TABLET (FP) PO SCH (10:30)
[2021-07-19] MEDS: NICOTINE 14 MG/24 HOURS TOPICAL PATCH TD SCH (10:30)
[2021-07-19] MEDS ORDERED: MELATONIN 5 MG TABLETS PO SCH (22:00)
[2021-07-19] MEDS: THIAMINE HCL 100 MG TABLET (FP) PO SCH (22:19)
[2021-07-19] MEDS: SUVOREXANT 10 MG TABLET PO PRN (22:21)
[2021-07-20] MEDS: chlordiazePOXIDE HCL 25 MG CAPSULE PO SCH ×4 (05:34→22:20)
[2021-07-20] MEDS: hydrOXYzine PAMOATE 25 MG CAPSULE (FP) PO SCH ×5 (05:34→22:19)
[2021-07-20] MEDS: NICOTINE 14 MG/24 HOURS TOPICAL PATCH TD SCH (10:18)
[2021-07-20] MEDS: PRENATAL VITAMINS W/ FOLIC ACID TABLET (FP) PO SCH (10:18)
[2021-07-20] MEDS: METHOCARBAMOL 500 MG TABLET PO PRN (10:19)
[2021-07-20] MEDS ORDERED: POTASSIUM CHLORIDE ORAL LIQUID 20 MEQ/15 ML PO ONE ×2 (14:30→18:30)
[2021-07-20] MEDS: THIAMINE HCL 100 MG TABLET (FP) PO SCH (22:19)
[2021-07-20] MEDS: SUVOREXANT 10 MG TABLET PO PRN (22:20)
[2021-07-21] MEDS: hydrOXYzine PAMOATE 25 MG CAPSULE (FP) PO SCH ×5 (06:05→21:58)
[2021-07-21] MEDS: chlordiazePOXIDE HCL 25 MG CAPSULE PO SCH ×4 (06:05→21:59)
[2021-07-21] MEDS: METHOCARBAMOL 500 MG TABLET PO PRN (10:34)
[2021-07-21] MEDS: PRENATAL VITAMINS W/ FOLIC ACID TABLET (FP) PO SCH (10:34)
[2021-07-21] MEDS: NICOTINE 14 MG/24 HOURS TOPICAL PATCH TD SCH ×2 (10:35→12:31)
[2021-07-21 14:08] LABS: SARS-CoV-2 NAA Not Detected (Not Detected)
[2021-07-21] MEDS: THIAMINE HCL 100 MG TABLET (FP) PO SCH (21:58)
[2021-07-21] MEDS: SUVOREXANT 10 MG TABLET PO PRN (22:00)
[2021-07-22] MEDS ORDERED: chlordiazePOXIDE HCL 10 MG CAPSULE PO PRN
[2021-07-22] MEDS: hydrOXYzine PAMOATE 25 MG CAPSULE (FP) PO SCH ×5 (05:35→22:08)
[2021-07-22] MEDS: chlordiazePOXIDE HCL 10 MG CAPSULE PO SCH ×4 (05:36→22:08)
[2021-07-22] MEDS: PRENATAL VITAMINS W/ FOLIC ACID TABLET (FP) PO SCH (10:27)
[2021-07-22] MEDS: METHOCARBAMOL 500 MG TABLET PO PRN (10:27)
[2021-07-22] MEDS: NICOTINE 14 MG/24 HOURS TOPICAL PATCH TD SCH (10:28)
[2021-07-22] MEDS: THIAMINE HCL 100 MG TABLET (FP) PO SCH (22:08)
[2021-07-22] MEDS ORDERED: SUVOREXANT 10 MG TABLET PO ONE (23:30)
[2021-07-23] MEDS: chlordiazePOXIDE HCL 10 MG CAPSULE PO SCH ×2 (05:51→17:34)
[2021-07-23] MEDS: hydrOXYzine PAMOATE 25 MG CAPSULE (FP) PO SCH ×5 (05:52→22:30)
[2021-07-23] MEDS: METHOCARBAMOL 500 MG TABLET PO PRN (10:45)
[2021-07-23] MEDS: PRENATAL VITAMINS W/ FOLIC ACID TABLET (FP) PO SCH (10:45)
[2021-07-23] MEDS: NICOTINE 14 MG/24 HOURS TOPICAL PATCH TD SCH (10:46)
[2021-07-23] MEDS: THIAMINE HCL 100 MG TABLET (FP) PO SCH (22:30)
[2021-07-24] MEDS ORDERED: MELATONIN 5 MG TABLETS PO ONE (01:27)
[2021-07-24] MEDS ORDERED: chlordiazePOXIDE HCL 10 MG CAPSULE PO ONE (05:00)
[2021-07-24] MEDS: hydrOXYzine PAMOATE 25 MG CAPSULE (FP) PO SCH ×2 (06:39→10:23)
[2021-07-24] MEDS: PRENATAL VITAMINS W/ FOLIC ACID TABLET (FP) PO SCH (10:22)
[2021-07-24] MEDS: NICOTINE 14 MG/24 HOURS TOPICAL PATCH TD SCH (10:23)
[2021-07-24 13:21] VITALS: BP 113/71; PULSE 78; TEMP 97.8
== END 2021-07-24 13:02 | disposition other institution (70) | DRG 774 ==
LOC: YASAS 06:26 → Y6N 09:14
PROVIDERS: ADMIT Allergy & Immunology; ATTEND Allergy & Immunology
PROC: HZ2ZZZZ Detoxification Services for Substance Abuse Treatment (ICD-10-PCS; principal; 2021-07-19)
DX: F10.230 Alcohol dependence with withdrawal, uncomplicated (principal); F14.20 Cocaine dependence, uncomplicated; F12.20 Cannabis dependence, uncomplicated; F17.210 Nicotine dependence, cigarettes, uncomplicated; F19.282 Other psychoactive substance dependence with psychoactive substance-induced sleep disorder; F19.24 Other psychoactive substance dependence with psychoactive substance-induced mood disorder; M54.50 Low back pain, unspecified; G89.29 Other chronic pain; Z59.02 Unsheltered homelessness; Z91.013 Allergy to seafood
CPT/HCPCS: 36415; 80053; 80307; 84132; 85025; 86780; 87811; 93005; 93010; 99282-25; C9803-CS; U0003; U0005

== ENCOUNTER 2021-07-24 13:21 | Inpatient (IN) | payer OTHER ==
[2021-07-24] MEDS ORDERED: MAG HYDROX/AL HYDROX/SIMETH 30 ML UNIT-DOSE CUP PO PRN (14:33)
[2021-07-24] MEDS ORDERED: MAGNESIUM CITRATE 300 ML BOTTLE PO PRN (14:33)
[2021-07-24] MEDS ORDERED: guaiFENesin 200 MG/10 ML 10 ML UNIT-DOSE CUPS PO PRN (14:33)
[2021-07-24] MEDS ORDERED: LOPERAMIDE HCL 2 MG CAPSULE PO PRN (14:33)
[2021-07-24] MEDS ORDERED: NICOTINE 10 MG CARTRIDGE (INHALER) IH PRN (14:33)
[2021-07-24] MEDS ORDERED: IBUPROFEN 400 MG TABLET (FP) PO PRN (14:33)
[2021-07-24] MEDS ORDERED: MAGNESIUM HYDROX 2400MG/30ML ORAL SUSPENSION 30 ML CUP PO PRN (14:33)
[2021-07-24] MEDS ORDERED: ACETAMINOPHEN 325 MG TABLET (FP) PO PRN (14:33)
[2021-07-24] MEDS ORDERED: P-EPHED 60MG/TRIPROLIDI 2.5MG TABLET PO PRN (14:33)
[2021-07-24 15:48] VITALS: BMI 23.7
[2021-07-24] MEDS: NICOTINE 7 MG/24 HOURS TOPICAL PATCH TD SCH (16:03)
[2021-07-24] MEDS: hydrOXYzine PAMOATE 25 MG CAPSULE (FP) PO SCH ×2 (19:06→21:17)
[2021-07-24] MEDS: THIAMINE HCL 100 MG TABLET (FP) PO SCH (21:17)
[2021-07-24] MEDS: MELATONIN 5 MG TABLETS PO SCH (21:17)
[2021-07-25] MEDS: hydrOXYzine PAMOATE 25 MG CAPSULE (FP) PO SCH ×5 (06:57→21:49)
[2021-07-25] MEDS: NICOTINE 7 MG/24 HOURS TOPICAL PATCH TD SCH (10:25)
[2021-07-25] MEDS: PRENATAL VITAMINS W/ FOLIC ACID TABLET (FP) PO SCH (10:25)
[2021-07-25] MEDS ORDERED: FLU VACC QS2021-22(6MOS UP)/PF 60 MCG/0.5 ML SYRINGE IM ONE (12:00)
[2021-07-25 12:01] LABS: URINE APPEARANCE CLEAR; URINE BILIRUBIN NEGATIVE (NEGATIVE); URINE COLOR YELLOW; URINE GLUCOSE (UA) NEGATIVE (NEGATIVE); URINE KETONE NEGATIVE (NEGATIVE); URINE LEUK ESTERASE NEGATIVE (NEGATIVE); URINE NITRITE NEGATIVE (NEGATIVE); URINE PROTEIN NEGATIVE (NEGATIVE); URINE UROBILINOGEN 0.2 mg/dL (0.2-1.0)
[2021-07-25] MEDS: THIAMINE HCL 100 MG TABLET (FP) PO SCH (21:48)
[2021-07-25] MEDS: MELATONIN 5 MG TABLETS PO SCH (21:48)
[2021-07-25] MEDS: diphenhydrAMINE HCL 25 MG CAPSULE (FP) PO PRN (23:36)
[2021-07-26] MEDS: hydrOXYzine PAMOATE 25 MG CAPSULE (FP) PO SCH ×5 (05:52→21:07)
[2021-07-26] MEDS: NICOTINE 7 MG/24 HOURS TOPICAL PATCH TD SCH (10:42)
[2021-07-26] MEDS: PRENATAL VITAMINS W/ FOLIC ACID TABLET (FP) PO SCH (10:42)
[2021-07-26 11:16] LABS: HEMATOCRIT 38.6 % (35.4-49); HEMOGLOBIN 12.4 GM/dL (11.7-16.9); MCH 30.8 pg (25.7-33.7); MCHC 32.1 g/dl (32.0-35.9); MEAN CELL VOLUME 95.8 fl (80-96); MEAN PLT VOLUME 9.3 fl (7.5-11.1); PLATELET COUNT 246 10^3/uL (134-434); RBC 4.03 M/mm3 (4.00-5.60); RDW 15.1 % (11.9-15.9)
[2021-07-26 11:45] LABS: ALBUMIN 3.7 g/dl (3.4-5.0); BLOOD UREA NITROGEN 6.8 mg/dL (7-18); CALCIUM 9.4 mg/dL (8.5-10.1)
[2021-07-26 11:48] LABS: CREATININE 0.9 mg/dL (0.55-1.3)
[2021-07-26 11:50] LABS: BILIRUBIN,TOTAL 0.2 mg/dL (0.2-1); TOT PROT 7.3 g/dl (6.4-8.2)
[2021-07-26] MEDS: METHOCARBAMOL 500 MG TABLET PO SCH ×3 (13:17→21:07)
[2021-07-26 20:03] LABS: HIV INTERPRETATION NEGATIVE (NEGATIVE)
[2021-07-26] MEDS: THIAMINE HCL 100 MG TABLET (FP) PO SCH (21:06)
[2021-07-26] MEDS ORDERED: SUVOREXANT 10 MG TABLET PO PRN (22:00)
[2021-07-26] MEDS: diphenhydrAMINE HCL 25 MG CAPSULE (FP) PO PRN (23:07)
[2021-07-27] MEDS: hydrOXYzine PAMOATE 25 MG CAPSULE (FP) PO SCH (05:23)
[2021-07-27 06:55] VITALS: TEMP 97.3
[2021-07-27] MEDS ORDERED: hydrOXYzine PAMOATE 25 MG CAPSULE (FP) PO PRN (09:01)
[2021-07-27] MEDS ORDERED: GABAPENTIN 100 MG CAPSULE PO SCH (10:00)
[2021-07-27] MEDS: NICOTINE 7 MG/24 HOURS TOPICAL PATCH TD SCH (10:06)
[2021-07-27] MEDS: PRENATAL VITAMINS W/ FOLIC ACID TABLET (FP) PO SCH (10:06)
[2021-07-27] MEDS: METHOCARBAMOL 750 MG TABLET PO SCH ×2 (10:54→13:47)
[2021-07-27 14:13] VITALS: BP 125/67; PULSE 94
== END 2021-07-27 15:50 | disposition left against medical advice (07) | DRG 770 ==
LOC: YASAS 13:21 → Y3W 13:22
PROVIDERS: ADMIT Psychiatry & Neurology Pain Medicine; ATTEND Psychiatry & Neurology Pain Medicine
PROC: HZ42ZZZ Group Counseling for Substance Abuse Treatment, Cognitive-Behavioral (ICD-10-PCS; principal; 2021-07-24)
DX: F10.20 Alcohol dependence, uncomplicated (principal); M54.50 Low back pain, unspecified; G89.29 Other chronic pain; R94.5 Abnormal results of liver function studies; R26.89 Other abnormalities of gait and mobility; Z91.19 Patient's noncompliance with other medical treatment and regimen
CPT/HCPCS: 36415; 80053; 81003; 85027; 86780; 87389

== ENCOUNTER 2021-08-03 01:39 | Inpatient (IN) | payer OTHER ==
[2021-08-03] MEDS ORDERED: DICYCLOMINE HCL 10 MG CAPSULE PO PRN (02:04)
[2021-08-03] MEDS ORDERED: MAG HYDROX/AL HYDROX/SIMETH 30 ML UNIT-DOSE CUP PO PRN (02:04)
[2021-08-03] MEDS ORDERED: METHOCARBAMOL 500 MG TABLET PO PRN (02:04)
[2021-08-03] MEDS ORDERED: IBUPROFEN 400 MG TABLET (FP) PO PRN (02:04)
[2021-08-03] MEDS ORDERED: P-EPHED 60MG/TRIPROLIDI 2.5MG TABLET PO PRN (02:04)
[2021-08-03] MEDS ORDERED: hydrOXYzine PAMOATE 25 MG CAPSULE (FP) PO PRN (02:04)
[2021-08-03] MEDS ORDERED: ONDANSETRON *ODT* 4 MG TABLET SL PRN (02:04)
[2021-08-03] MEDS ORDERED: guaiFENesin 200 MG/10 ML 10 ML UNIT-DOSE CUPS PO PRN (02:04)
[2021-08-03] MEDS ORDERED: MAGNESIUM HYDROX 2400MG/30ML ORAL SUSPENSION 30 ML CUP PO PRN (02:04)
[2021-08-03] MEDS ORDERED: LOPERAMIDE HCL 2 MG CAPSULE PO PRN (02:04)
[2021-08-03] MEDS ORDERED: MAGNESIUM CITRATE 300 ML BOTTLE PO PRN (02:04)
[2021-08-03] MEDS ORDERED: NICOTINE POLACRILEX 2 MG GUM BUC PRN (02:04)
[2021-08-03] MEDS ORDERED: BENZOCAINE/MENTHOL (CHLORASEPTIC ) LOZENGE MM PRN (02:04)
[2021-08-03] MEDS ORDERED: ACETAMINOPHEN 325 MG TABLET (FP) PO PRN ×2 (02:04)
[2021-08-03] MEDS ORDERED: BISMUTH SUBSALICYLATE 524 MG/30 ML PO PRN (02:04)
[2021-08-03 09:31] VITALS: BP 109/70; PULSE 81; TEMP 97.3
[2021-08-03] MEDS ORDERED: PRENATAL VITAMINS W/ FOLIC ACID TABLET (FP) PO SCH (10:00)
[2021-08-03] MEDS ORDERED: NICOTINE 14 MG/24 HOURS TOPICAL PATCH TD SCH (10:00)
[2021-08-03 10:07] LABS: HEMATOCRIT 34.4 % (35.4-49); HEMOGLOBIN 11.4 GM/dL (11.7-16.9); MCH 30.5 pg (25.7-33.7); MCHC 33.1 g/dl (32.0-35.9); MEAN CELL VOLUME 92.2 fl (80-96); MEAN PLT VOLUME 8.2 fl (7.5-11.1); PLATELET COUNT 310 10^3/uL (134-434); RBC 3.73 M/mm3 (4.00-5.60); RDW 14.1 % (11.9-15.9); WHITE BLOOD COUNT 4.4 K/mm3 (4.0-10.0)
[2021-08-03 10:54] LABS: ALBUMIN 3.4 g/dl (3.4-5.0); CALCIUM 8.5 mg/dL (8.5-10.1)
[2021-08-03 10:55] LABS: CREATININE 0.7 mg/dL (0.55-1.3)
[2021-08-03 10:56] LABS: BILIRUBIN,TOTAL 0.5 mg/dL (0.2-1); TOT PROT 6.5 g/dl (6.4-8.2)
[2021-08-03 10:59] LABS: BLOOD UREA NITROGEN 11.5 mg/dL (7-18)
[2021-08-03] MEDS ORDERED: MELATONIN 5 MG TABLETS PO SCH (22:00)
[2021-08-03] MEDS ORDERED: THIAMINE HCL 100 MG TABLET (FP) PO SCH (22:00)
== END 2021-08-03 10:21 | disposition home or self-care (01) | DRG 774 ==
LOC: YASAS 01:39 → Y6N 02:13
PROVIDERS: ADMIT Allergy & Immunology; ATTEND Allergy & Immunology
PROC: HZ2ZZZZ Detoxification Services for Substance Abuse Treatment (ICD-10-PCS; principal; 2021-08-03)
DX: F10.230 Alcohol dependence with withdrawal, uncomplicated (principal); F14.20 Cocaine dependence, uncomplicated; F10.220 Alcohol dependence with intoxication, uncomplicated; F12.10 Cannabis abuse, uncomplicated; F17.213 Nicotine dependence, cigarettes, with withdrawal; F19.24 Other psychoactive substance dependence with psychoactive substance-induced mood disorder; M54.50 Low back pain, unspecified; G89.29 Other chronic pain; R63.8 Other symptoms and signs concerning food and fluid intake; Z91.19 Patient's noncompliance with other medical treatment and regimen; Z59.00 Homelessness unspecified
CPT/HCPCS: 36415; 80053; 85027; 86780; C9803-CS; U0003; U0005

== ENCOUNTER 2021-08-16 15:44 | Inpatient (IN) | payer OTHER ==
[2021-08-16 16:07] VITALS: BMI 22.4
[2021-08-16] MEDS ORDERED: MAG HYDROX/AL HYDROX/SIMETH 30 ML UNIT-DOSE CUP PO PRN (16:16)
[2021-08-16] MEDS ORDERED: LOPERAMIDE HCL 2 MG CAPSULE PO PRN (16:16)
[2021-08-16] MEDS ORDERED: ONDANSETRON *ODT* 4 MG TABLET SL PRN (16:16)
[2021-08-16] MEDS ORDERED: NICOTINE POLACRILEX 2 MG GUM BUC PRN (16:16)
[2021-08-16] MEDS ORDERED: ACETAMINOPHEN 325 MG TABLET (FP) PO PRN ×2 (16:16)
[2021-08-16] MEDS ORDERED: BENZOCAINE/MENTHOL (CHLORASEPTIC ) LOZENGE MM PRN (16:16)
[2021-08-16] MEDS ORDERED: DICYCLOMINE HCL 10 MG CAPSULE PO PRN (16:16)
[2021-08-16] MEDS ORDERED: IBUPROFEN 400 MG TABLET (FP) PO PRN (16:16)
[2021-08-16] MEDS ORDERED: MAGNESIUM HYDROX 2400MG/30ML ORAL SUSPENSION 30 ML CUP PO PRN (16:16)
[2021-08-16] MEDS ORDERED: BISMUTH SUBSALICYLATE 524 MG/30 ML PO PRN (16:16)
[2021-08-16] MEDS ORDERED: MELATONIN 5 MG TABLETS PO PRN (16:16)
[2021-08-16] MEDS ORDERED: MAGNESIUM CITRATE 300 ML BOTTLE PO PRN (16:16)
[2021-08-16] MEDS ORDERED: chlordiazePOXIDE HCL 25 MG CAPSULE PO PRN (16:18)
[2021-08-16] MEDS: METHOCARBAMOL 500 MG TABLET PO PRN (17:45)
[2021-08-16] MEDS: hydrOXYzine PAMOATE 25 MG CAPSULE (FP) PO PRN ×2 (17:45→22:19)
[2021-08-16] MEDS: LIDOCAINE 5% TOPICAL PATCH TP SCH (17:45)
[2021-08-16] MEDS: chlordiazePOXIDE HCL 25 MG CAPSULE PO SCH ×2 (18:09→22:19)
[2021-08-16] MEDS ORDERED: LIDOCAINE PATCH REMOVAL MC SCH (22:00)
[2021-08-16] MEDS ORDERED: THIAMINE HCL 100 MG TABLET (FP) PO SCH (22:00)
[2021-08-17] MEDS: chlordiazePOXIDE HCL 25 MG CAPSULE PO SCH ×2 (06:29→10:02)
[2021-08-17] MEDS: hydrOXYzine PAMOATE 25 MG CAPSULE (FP) PO PRN (08:46)
[2021-08-17] MEDS: METHOCARBAMOL 500 MG TABLET PO PRN (08:47)
[2021-08-17 09:24] VITALS: BP 128/102; PULSE 86; TEMP 98.1
[2021-08-17] MEDS ORDERED: PRENATAL VITAMINS W/ FOLIC ACID TABLET (FP) PO SCH (10:00)
[2021-08-17] MEDS: LIDOCAINE 5% TOPICAL PATCH TP SCH (10:01)
[2021-08-17] MEDS ORDERED: propRANOLol HCL 10 MG TABLET PO SCH (14:00)
[2021-08-18] MEDS ORDERED: chlordiazePOXIDE HCL 25 MG CAPSULE PO SCH (05:00)
[2021-08-19] MEDS ORDERED: chlordiazePOXIDE HCL 10 MG CAPSULE PO PRN
[2021-08-19] MEDS ORDERED: chlordiazePOXIDE HCL 10 MG CAPSULE PO SCH (05:00)
[2021-08-20] MEDS ORDERED: chlordiazePOXIDE HCL 10 MG CAPSULE PO SCH (05:00)
[2021-08-21] MEDS ORDERED: chlordiazePOXIDE HCL 10 MG CAPSULE PO ONE (05:00)
== END 2021-08-17 12:30 | disposition left against medical advice (07) | DRG 770 ==
LOC: YASAS 15:44 → Y6N 16:39
PROVIDERS: ADMIT Allergy & Immunology; ATTEND Surgery
PROC: HZ2ZZZZ Detoxification Services for Substance Abuse Treatment (ICD-10-PCS; principal; 2021-08-16)
DX: F10.230 Alcohol dependence with withdrawal, uncomplicated (principal); F14.20 Cocaine dependence, uncomplicated; F12.10 Cannabis abuse, uncomplicated; F17.213 Nicotine dependence, cigarettes, with withdrawal; F41.9 Anxiety disorder, unspecified; F32.A Depression, unspecified
CPT/HCPCS: C9803-CS; U0003; U0005

== ENCOUNTER 2022-02-17 00:21 | Inpatient (IN) | payer OTHER ==
[2022-02-17] MEDS ORDERED: guaiFENesin 200 MG/10 ML 10 ML UNIT-DOSE CUPS PO PRN (00:40)
[2022-02-17] MEDS ORDERED: MAGNESIUM HYDROX 2400MG/30ML ORAL SUSPENSION 30 ML CUP PO PRN (00:40)
[2022-02-17] MEDS ORDERED: DICYCLOMINE HCL 10 MG CAPSULE PO PRN (00:40)
[2022-02-17] MEDS ORDERED: LOPERAMIDE HCL 2 MG CAPSULE PO PRN (00:40)
[2022-02-17] MEDS ORDERED: P-EPHED 60MG/TRIPROLIDI 2.5MG TABLET PO PRN (00:40)
[2022-02-17] MEDS ORDERED: MAG HYDROX/AL HYDROX/SIMETH 30 ML UNIT-DOSE CUP PO PRN (00:40)
[2022-02-17] MEDS ORDERED: ACETAMINOPHEN 325 MG TABLET (FP) PO PRN (00:40)
[2022-02-17] MEDS ORDERED: BISMUTH SUBSALICYLATE 524 MG/30 ML PO PRN (00:40)
[2022-02-17] MEDS ORDERED: NALOXONE HCL (KLOXXADO) 8 MG SPRAY NS PRN (00:40)
[2022-02-17] MEDS ORDERED: POLYETHYLENE GLYCOL (HEALTHYLAX) 3350 17 GM PACKET PO PRN (00:40)
[2022-02-17] MEDS ORDERED: BENZOCAINE/MENTHOL (CHLORASEPTIC ) LOZENGE MM PRN (00:40)
[2022-02-17] MEDS ORDERED: ONDANSETRON *ODT* 4 MG TABLET SL PRN (00:40)
[2022-02-17] MEDS ORDERED: IBUPROFEN 400 MG TABLET (FP) PO PRN (00:40)
[2022-02-17 01:40] VITALS: BMI 21.4
[2022-02-17] MEDS: METHOCARBAMOL 500 MG TABLET PO PRN ×3 (02:30→16:35)
[2022-02-17] MEDS: hydrOXYzine PAMOATE 25 MG CAPSULE (FP) PO PRN (02:30)
[2022-02-17] MEDS ORDERED: chlordiazePOXIDE HCL 25 MG CAPSULE PO PRN (09:08)
[2022-02-17] MEDS: chlordiazePOXIDE HCL 25 MG CAPSULE PO SCH ×3 (10:40→23:03)
[2022-02-17] MEDS: PRENATAL VITAMINS W/ FOLIC ACID TABLET (FP) PO SCH (10:40)
[2022-02-17] MEDS: NICOTINE 14 MG/24 HOURS TOPICAL PATCH TD SCH (10:41)
[2022-02-17 13:24] LABS: HEMATOCRIT 37.6 % (35.4-49); HEMOGLOBIN 12.4 GM/dL (11.7-16.9); MCH 28.9 pg (25.7-33.7); MCHC 33.1 g/dl (32.0-35.9); MEAN CELL VOLUME 87.4 fl (80-96); MEAN PLT VOLUME 8.3 fl (7.5-11.1); PLATELET COUNT 147 10^3/uL (134-434); WHITE BLOOD COUNT 2.9 K/mm3 (4.0-10.0)
[2022-02-17 13:33] LABS: ALBUMIN 3.3 g/dl (3.4-5.0); CALCIUM 8.4 mg/dL (8.5-10.1)
[2022-02-17 13:34] LABS: BLOOD UREA NITROGEN 9.7 mg/dL (7-18)
[2022-02-17 13:36] LABS: CREATININE 0.9 mg/dL (0.55-1.3)
[2022-02-17 13:38] LABS: BILIRUBIN,TOTAL 0.8 mg/dL (0.2-1); TOT PROT 6.9 g/dl (6.4-8.2)
[2022-02-17] MEDS ORDERED: MELATONIN 5 MG TABLETS PO SCH (22:00)
[2022-02-17] MEDS: THIAMINE HCL 100 MG TABLET (FP) PO SCH (23:03)
[2022-02-18] MEDS: METHOCARBAMOL 500 MG TABLET PO PRN ×3 (05:19→17:57)
[2022-02-18] MEDS: chlordiazePOXIDE HCL 25 MG CAPSULE PO SCH ×4 (05:19→22:09)
[2022-02-18] MEDS: PRENATAL VITAMINS W/ FOLIC ACID TABLET (FP) PO SCH (10:47)
[2022-02-18] MEDS: NICOTINE 14 MG/24 HOURS TOPICAL PATCH TD SCH (10:49)
[2022-02-18] MEDS: NICOTINE POLACRILEX 2 MG GUM BUC PRN (18:50)
[2022-02-18] MEDS ORDERED: SUVOREXANT 10 MG TABLET PO PRN (22:00)
[2022-02-18] MEDS: THIAMINE HCL 100 MG TABLET (FP) PO SCH (22:09)
[2022-02-19] MEDS: chlordiazePOXIDE HCL 25 MG CAPSULE PO SCH ×3 (05:19→17:04)
[2022-02-19] MEDS: hydrOXYzine PAMOATE 25 MG CAPSULE (FP) PO PRN (05:20)
[2022-02-19] MEDS: METHOCARBAMOL 500 MG TABLET PO PRN ×2 (05:20→17:04)
[2022-02-19] MEDS: PRENATAL VITAMINS W/ FOLIC ACID TABLET (FP) PO SCH (10:12)
[2022-02-19] MEDS: NICOTINE 14 MG/24 HOURS TOPICAL PATCH TD SCH (10:12)
[2022-02-19 12:53] LABS: HEMATOCRIT 40.9 % (35.4-49); HEMOGLOBIN 13.3 GM/dL (11.7-16.9); MCH 28.9 pg (25.7-33.7); MCHC 32.7 g/dl (32.0-35.9); MEAN CELL VOLUME 88.5 fl (80-96); MEAN PLT VOLUME 9.3 fl (7.5-11.1); PLATELET COUNT 117 10^3/uL (134-434); RBC 4.62 M/mm3 (4.00-5.60); RDW 15.2 % (11.9-15.9); WHITE BLOOD COUNT 2.9 K/mm3 (4.0-10.0)
[2022-02-19] MEDS: NICOTINE POLACRILEX 2 MG GUM BUC PRN (17:01)
[2022-02-19 17:11] VITALS: BP 129/93; PULSE 99; RESP 17; TEMP 97.7
[2022-02-20] MEDS ORDERED: chlordiazePOXIDE HCL 10 MG CAPSULE PO PRN
[2022-02-20] MEDS ORDERED: chlordiazePOXIDE HCL 10 MG CAPSULE PO SCH (05:00)
[2022-02-21] MEDS ORDERED: chlordiazePOXIDE HCL 10 MG CAPSULE PO SCH (05:00)
[2022-02-22] MEDS ORDERED: chlordiazePOXIDE HCL 10 MG CAPSULE PO ONE (05:00)
== END 2022-02-19 18:40 | disposition left against medical advice (07) | DRG 770 ==
LOC: YASAS 00:21 → Y6N 01:52 → UNDOADMIN 01:52
PROVIDERS: ADMIT Allergy & Immunology; ATTEND Surgery
PROC: HZ2ZZZZ Detoxification Services for Substance Abuse Treatment (ICD-10-PCS; principal; 2022-02-17)
DX: F10.230 Alcohol dependence with withdrawal, uncomplicated (principal); F14.20 Cocaine dependence, uncomplicated; F17.210 Nicotine dependence, cigarettes, uncomplicated; F10.220 Alcohol dependence with intoxication, uncomplicated; F19.282 Other psychoactive substance dependence with psychoactive substance-induced sleep disorder; F19.24 Other psychoactive substance dependence with psychoactive substance-induced mood disorder; M54.50 Low back pain, unspecified; G89.29 Other chronic pain; R78.9 Finding of unspecified substance, not normally found in blood; Z59.00 Homelessness unspecified; Z56.0 Unemployment, unspecified; Z91.013 Allergy to seafood
CPT/HCPCS: 36415; 80053; 82310; 84450; 85027; 86780; C9803-CS; U0003; U0005

== ENCOUNTER 2022-03-25 20:16 | Inpatient (IN) | payer OTHER ==
[2022-03-25] MEDS ORDERED: hydrOXYzine PAMOATE 25 MG CAPSULE (FP) PO PRN (20:49)
[2022-03-25] MEDS ORDERED: MAGNESIUM HYDROX 2400MG/30ML ORAL SUSPENSION 30 ML CUP PO PRN (20:49)
[2022-03-25] MEDS ORDERED: BENZOCAINE/MENTHOL (CHLORASEPTIC ) LOZENGE MM PRN (20:49)
[2022-03-25] MEDS ORDERED: ONDANSETRON *ODT* 4 MG TABLET SL PRN (20:49)
[2022-03-25] MEDS ORDERED: NALOXONE HCL (KLOXXADO) 8 MG SPRAY NS PRN (20:49)
[2022-03-25] MEDS ORDERED: IBUPROFEN 400 MG TABLET (FP) PO PRN (20:49)
[2022-03-25] MEDS ORDERED: POLYETHYLENE GLYCOL (HEALTHYLAX) 3350 17 GM PACKET PO PRN (20:49)
[2022-03-25] MEDS ORDERED: DICYCLOMINE HCL 10 MG CAPSULE PO PRN (20:49)
[2022-03-25] MEDS ORDERED: LOPERAMIDE HCL 2 MG CAPSULE PO PRN (20:49)
[2022-03-25] MEDS ORDERED: IBUPROFEN 600 MG TABLET (FP) PO PRN (20:49)
[2022-03-25] MEDS ORDERED: METHOCARBAMOL 500 MG TABLET PO PRN (20:49)
[2022-03-25] MEDS ORDERED: NICOTINE POLACRILEX 2 MG GUM BUC PRN (20:49)
[2022-03-25] MEDS ORDERED: ACETAMINOPHEN 325 MG TABLET (FP) PO PRN ×2 (20:49)
[2022-03-25] MEDS ORDERED: BISMUTH SUBSALICYLATE 524 MG/30 ML PO PRN (20:49)
[2022-03-25] MEDS ORDERED: MAG HYDROX/AL HYDROX/SIMETH 30 ML UNIT-DOSE CUP PO PRN (20:49)
[2022-03-25] MEDS ORDERED: THIAMINE HCL 100 MG TABLET (FP) PO SCH (22:00)
[2022-03-25] MEDS ORDERED: MELATONIN 5 MG TABLETS PO SCH (22:00)
[2022-03-26 06:20] VITALS: BP 134/71; PULSE 75; RESP 18; TEMP 98.2
[2022-03-26 09:26] LABS: HEMATOCRIT 42.6 % (35.4-49); HEMOGLOBIN 14.1 GM/dL (11.7-16.9); MCH 29.2 pg (25.7-33.7); MCHC 33.1 g/dl (32.0-35.9); MEAN CELL VOLUME 88.3 fl (80-96); MEAN PLT VOLUME 8.6 fl (7.5-11.1); PLATELET COUNT 244 10^3/uL (134-434); RBC 4.82 M/mm3 (4.00-5.60); RDW 14.2 % (11.9-15.9); WHITE BLOOD COUNT 3.3 K/mm3 (4.0-10.0)
[2022-03-26] MEDS ORDERED: PRENATAL VITAMINS W/ FOLIC ACID TABLET (FP) PO SCH (10:00)
[2022-03-26] MEDS ORDERED: NICOTINE 21 MG/24 HOURS TOPICAL PATCH TD SCH (10:00)
[2022-03-26 10:25] LABS: CALCIUM 8.7 mg/dL (8.5-10.1)
[2022-03-26 10:26] LABS: ALBUMIN 3.5 g/dl (3.4-5.0)
[2022-03-26 10:29] LABS: CREATININE 0.9 mg/dL (0.55-1.3)
[2022-03-26 10:31] LABS: BILIRUBIN,TOTAL 0.3 mg/dL (0.2-1); TOT PROT 7.3 g/dl (6.4-8.2)
[2022-03-26 12:36] LABS: HIV INTERPRETATION NEGATIVE (NEGATIVE)
== END 2022-03-26 09:34 | disposition left against medical advice (07) | DRG 770 ==
LOC: YASAS 20:16 → Y6N 21:30
PROVIDERS: ADMIT Allergy & Immunology; ATTEND Surgery
PROC: HZ2ZZZZ Detoxification Services for Substance Abuse Treatment (ICD-10-PCS; principal; 2022-03-25)
DX: F10.230 Alcohol dependence with withdrawal, uncomplicated (principal); F14.20 Cocaine dependence, uncomplicated; F17.210 Nicotine dependence, cigarettes, uncomplicated; F19.24 Other psychoactive substance dependence with psychoactive substance-induced mood disorder; F32.A Depression, unspecified; M54.50 Low back pain, unspecified; G89.29 Other chronic pain; R63.8 Other symptoms and signs concerning food and fluid intake; Z91.81 History of falling; Z91.013 Allergy to seafood; Z91.018 Allergy to other foods
CPT/HCPCS: 36415; 80053; 85027; 86780; 87389; 87811; C9803-CS; U0003; U0005

== ENCOUNTER 2022-04-12 19:21 | Inpatient (IN) | payer OTHER ==
[2022-04-12 20:11] VITALS: BMI 26.0
[2022-04-12] MEDS ORDERED: MELATONIN 5 MG TABLETS PO PRN (20:29)
[2022-04-12] MEDS ORDERED: IBUPROFEN 400 MG TABLET (FP) PO PRN (20:29)
[2022-04-12] MEDS ORDERED: NICOTINE POLACRILEX 2 MG GUM BUC PRN (20:29)
[2022-04-12] MEDS ORDERED: POLYETHYLENE GLYCOL (HEALTHYLAX) 3350 17 GM PACKET PO PRN (20:29)
[2022-04-12] MEDS ORDERED: METHOCARBAMOL 500 MG TABLET PO PRN (20:29)
[2022-04-12] MEDS ORDERED: BISMUTH SUBSALICYLATE 524 MG/30 ML PO PRN (20:29)
[2022-04-12] MEDS ORDERED: MAGNESIUM HYDROX 2400MG/30ML ORAL SUSPENSION 30 ML CUP PO PRN (20:29)
[2022-04-12] MEDS ORDERED: LOPERAMIDE HCL 2 MG CAPSULE PO PRN (20:29)
[2022-04-12] MEDS ORDERED: DICYCLOMINE HCL 10 MG CAPSULE PO PRN (20:29)
[2022-04-12] MEDS ORDERED: ONDANSETRON *ODT* 4 MG TABLET SL PRN (20:29)
[2022-04-12] MEDS ORDERED: IBUPROFEN 600 MG TABLET (FP) PO PRN (20:29)
[2022-04-12] MEDS ORDERED: MAG HYDROX/AL HYDROX/SIMETH 30 ML UNIT-DOSE CUP PO PRN (20:29)
[2022-04-12] MEDS ORDERED: ACETAMINOPHEN 325 MG TABLET (FP) PO PRN ×2 (20:29)
[2022-04-12] MEDS ORDERED: BENZOCAINE/MENTHOL (CHLORASEPTIC ) LOZENGE MM PRN (20:29)
[2022-04-12] MEDS ORDERED: P-EPHED 60MG/TRIPROLIDI 2.5MG TABLET PO PRN (20:29)
[2022-04-12] MEDS ORDERED: guaiFENesin 200 MG/10 ML 10 ML UNIT-DOSE CUPS PO PRN (20:29)
[2022-04-12] MEDS ORDERED: chlordiazePOXIDE HCL 25 MG CAPSULE PO PRN (20:32)
[2022-04-12] MEDS ORDERED: chlordiazePOXIDE HCL 25 MG CAPSULE PO ONE (20:45)
[2022-04-12] MEDS ORDERED: chlordiazePOXIDE HCL 25 MG CAPSULE ONE (20:53)
[2022-04-12] MEDS ORDERED: THIAMINE HCL 100 MG TABLET (FP) PO SCH (22:00)
[2022-04-13] MEDS: chlordiazePOXIDE HCL 25 MG CAPSULE PO SCH ×3 (01:14→10:40)
[2022-04-13] MEDS ORDERED: PRENATAL VITAMINS W/ FOLIC ACID TABLET (FP) PO SCH (10:00)
[2022-04-13 10:59] LABS: HEMATOCRIT 38.3 % (35.4-49); HEMOGLOBIN 12.5 GM/dL (11.7-16.9); MCH 28.7 pg (25.7-33.7); MCHC 32.6 g/dl (32.0-35.9); MEAN PLT VOLUME 8.6 fl (7.5-11.1); PLATELET COUNT 118 10^3/uL (134-434); RBC 4.35 M/mm3 (4.00-5.60); RDW 13.3 % (11.9-15.9); WHITE BLOOD COUNT 2.7 K/mm3 (4.0-10.0)
[2022-04-13 11:21] LABS: BLOOD UREA NITROGEN 11.2 mg/dL (7-18); CALCIUM 8.5 mg/dL (8.5-10.1)
[2022-04-13 11:23] LABS: BILIRUBIN,TOTAL 0.4 mg/dL (0.2-1)
[2022-04-13 11:24] LABS: CREATININE 0.8 mg/dL (0.55-1.3); TOT PROT 7.1 g/dl (6.4-8.2)
[2022-04-13 11:25] LABS: ALBUMIN 3.4 g/dl (3.4-5.0)
[2022-04-13 17:30] VITALS: BP 135/88; PULSE 88; RESP 18; TEMP 97.7
[2022-04-14] MEDS ORDERED: chlordiazePOXIDE HCL 25 MG CAPSULE PO SCH (05:00)
[2022-04-15] MEDS ORDERED: chlordiazePOXIDE HCL 10 MG CAPSULE PO PRN
[2022-04-15] MEDS ORDERED: chlordiazePOXIDE HCL 10 MG CAPSULE PO SCH (05:00)
[2022-04-16] MEDS ORDERED: chlordiazePOXIDE HCL 10 MG CAPSULE PO SCH (05:00)
[2022-04-17] MEDS ORDERED: chlordiazePOXIDE HCL 10 MG CAPSULE PO ONE (05:00)
== END 2022-04-13 17:48 | disposition left against medical advice (07) | DRG 770 ==
LOC: YASAS 19:21 → Y6N 04-13 00:21
PROVIDERS: ADMIT Allergy & Immunology; ATTEND Family Medicine
PROC: HZ2ZZZZ Detoxification Services for Substance Abuse Treatment (ICD-10-PCS; principal; 2022-04-13)
DX: F10.230 Alcohol dependence with withdrawal, uncomplicated (principal); F14.20 Cocaine dependence, uncomplicated; F12.20 Cannabis dependence, uncomplicated; F17.210 Nicotine dependence, cigarettes, uncomplicated; F32.A Depression, unspecified; G47.00 Insomnia, unspecified; M54.50 Low back pain, unspecified; G89.29 Other chronic pain
CPT/HCPCS: 36415; 80053; 85027; 86780; 87811; C9803-CS; U0003; U0005

== ENCOUNTER 2023-04-09 21:51 | Emergency (ER) | payer OTHER ==
[2023-04-09 21:56] VITALS: BMI 26.9
[2023-04-09 22:56] LABS: BASO % 0.9 % (0-2.0); EOS % 2.9 % (0-4.5); HEMATOCRIT 43.9 % (35.4-49); HEMOGLOBIN 14.5 GM/dL (11.7-16.9); LYMPH % 36.7 % (8-40); MCH 27.5 pg (25.7-33.7); MEAN CELL VOLUME 83.3 fl (80-96); MEAN PLT VOLUME 8.6 fl (7.5-11.1); MONO % 11.3 % (3.8-10.2); NEUT % 48.2 % (42.8-82.8); PLATELET COUNT 215 10^3/uL (134-434); RBC 5.27 M/mm3 (4.00-5.60); RDW 14.5 % (11.9-15.9)
[2023-04-09] MEDS ORDERED: CALCIUM GLUCONATE 10% - 1,000 MG/10 ML VIAL IVPB ONE (23:00)
[2023-04-09 23:01] LABS: INR 0.98 (0.83-1.09); PROTHROMBIN TIME (PATIENT) 11.4 SEC (9.7-13.0)
[2023-04-09] MEDS ORDERED: SODIUM CHLORIDE 0.9% 500 ML INFUS.BAG IV ONE (23:01)
[2023-04-09 23:04] LABS: ACTIVATED PTT 32.4 SECONDS (25.2-36.5)
[2023-04-09] MEDS ORDERED: CALCIUM GLUC IN NACL, ISO-OSM 1 GM/50 ML BAG IVPB ONE (23:11)
[2023-04-09 23:15] LABS: POTASSIUM 4.2 mmol/L (3.5-5.1)
[2023-04-09 23:17] LABS: CALCIUM 9.6 mg/dL (8.5-10.1)
[2023-04-09 23:18] LABS: ALBUMIN 3.9 g/dl (3.4-5.0); BLOOD UREA NITROGEN 12.9 mg/dL (7-18); MAGNESIUM 1.9 mg/dL (1.8-2.4)
[2023-04-09 23:22] LABS: BILIRUBIN,TOTAL 0.2 mg/dL (0.2-1); TOT PROT 7.4 g/dl (6.4-8.2)
[2023-04-10] MEDS ORDERED: ACETAMINOPHEN 1000 MG/100 ML BAG IVPB ONE (00:53)
[2023-04-10] MEDS ORDERED: ACETAMINOPHEN INJECTION 100 ML IVPB ONE (00:58)
[2023-04-10 01:54] VITALS: BP 116/71; PULSE 67; RESP 18; TEMP 98.2
== END 2023-04-10 01:56 | disposition home or self-care (01) ==
LOC: JER 21:51
PROC: 3E033GC Introduction of Other Therapeutic Substance into Peripheral Vein, Percutaneous Approach (ICD-10-PCS; principal; 2023-04-10)
PROC: 3E033NZ Introduction of Analgesics, Hypnotics, Sedatives into Peripheral Vein, Percutaneous Approach (ICD-10-PCS; 2023-04-10)
DX: R07.89 Other chest pain (principal); Z20.822 Contact with and (suspected) exposure to COVID-19
CPT/HCPCS: 0241U-QW; 36415; 71046-TC-FY; 80053; 83735; 84484; 85025; 85610; 85730; 93005; 93010; 99285-25

== ENCOUNTER 2023-06-14 09:21 | Emergency (ER) | payer SELFPAY ==
[2023-06-14 09:26] VITALS: RESP 18; TEMP 98.2; BMI 28.2
[2023-06-14] MEDS ORDERED: IBUPROFEN 400 MG TABLET (FP) PO ONE (10:40)
[2023-06-14] MEDS ORDERED: ACETAMINOPHEN 500 MG TABLET (FP) ONE (10:41)
[2023-06-14] MEDS: ACETAMINOPHEN 500 MG TABLET (FP) PO ONE (10:44)
[2023-06-14] MEDS: IBUPROFEN 400 MG TABLET (FP) PO ONE (10:44)
[2023-06-14 11:29] VITALS: BP 106/66; PULSE 67
== END 2023-06-14 12:05 | disposition home or self-care (01) ==
LOC: JER 09:21 → JERFT 09:21
DX: R51.9 Headache, unspecified (principal); R42 Dizziness and giddiness; R09.81 Nasal congestion; Z20.822 Contact with and (suspected) exposure to COVID-19
CPT/HCPCS: 0241U-QW; 70450-TC; 99284-25